=== PATIENT | male | born 1960 | race Two or more races ===

== ENCOUNTER 2024-09-08 13:19 | Inpatient (IN) | payer MEDICAID, SELFPAY ==
[2024-09-08] VITALS (111 sets, daily range): BP systolic 71–268; BP diastolic 40–131; PULSE 68–188; RESP 0–52; TEMP 36.7–40.6; O2SAT 82–99; BMI 27.3; BMI 27.8
[2024-09-08] MEDS: MORPHINE SULF INJ 10 MG/ML VIAL 4 MG IVP (13:32)
[2024-09-08] MEDS: FUROSEMIDE INJ 10 MG/ML 4ML VIAL 80 MG IVP (13:34)
--- NOTE | 2024-09-08 13:39 | XR_ITS ---
Examination: AP chest single view Technique one AP portable upright chest single view Exam date and time: September 08, 2024 1546 hrs. Indications: Shortness of breath chest pain today. Findings: Mild to moderate CHF Mild enlargement cardiac contour Prominent vascular congestion with perihilar edema Superimposed pneumonia in the left lung Impression: [id number] CHF Superimposed pneumonia left lung
[2024-09-08] MEDS: KETAMINE 50 MG/ML VIAL 10 ML 20 MG IVP (13:40)
[2024-09-08] MEDS: MethylPREDNISolone SOD SUCC 62.5 MG/ML 2ML VIAL 250 MG IVP (13:43)
--- NOTE | 2024-09-08 13:43 | PD.EDCHEST ---
ED Chest Pain RME/HPI General Chief Complaint: Chest Pain Stated Complaint: CHEST PAIN Time Seen by Provider: 09/08/24 13:46 Arrival date/time: 09/08/24 13:19 RME / HPI RME / HPI narrative: 64 year old male with history of hypertension, anemia, and heart disease presents to the ED BIBA from home for evaluation of chest pain and shortness of breath beginning today. Per medics, patient reported the chest pain is located most to the center of his chest. Accompanied by feeling short of breath. No nausea, vomiting, or abdominal pain. Medics report on scene patient was saturating 82% on room air and appeared to be in respiratory distress. Was placed on 15L Oxy Mask with improvement to 92%. Patient given 162mg Aspirin, 0.4mg SL Nitro, and 1 Nitro paste on chest prior to arrival. While in the ED patient is in respiratory distress and unable to provide any additional history. Related Data Allergies Allergy/AdvReac Type Severity Reaction Status Date / Time No Known Allergies Allergy Verified 09/08/24 14:32 Review of Systems Review of Systems Narrative Review of Systems: GEN: No fever, no chills EYES: No discharge, no pain HEENT: No ear pain, no congestion, no sore throat PULM: +shortness of breath, no cough CV: +chest pain, no palpitations GI: No nausea, no vomiting, no diarrhea, no pain, no constipation : No frequency, no urgency and no dysuria MUSC/SKEL No joint pain, no back pain SKIN: No rash NEURO: No weakness, no headache Past Medical History Social History SMOKING STATUS: Light (< 1 pack/day) ED Exam Narrative Physical exam: GENERAL APPEARANCE: Well hydrated, well nourished, in respiratory distress, tachypneic. VITALS: All vitals were reviewed, patient is hypertensive 229/117, the pulse ox is 97% on bipap which is normal according to my interpretation. HEENT: Normocephalic, atramatic, EOMI, EACs are patent. There is no bulge or retraction. Throat without erythema or exudate. Moist oromucosa. No jaundice NECK: Supple, positive JVD, no bruits. CARDIOVASCULAR: Tachycardic with occasional PVC's without S3-S4 or murmur. No rubs or gallops. LUNGS/CHEST: Tachypneic, rhonchi and wheezing bilaterally. No rales. ABDOMEN: Soft, nontender, with normal bowel sounds. No pulsatile masses. No rebound, rigidity, or guarding. No incarcerated hernia. EXTREMITIES: No edema, clubbing, or cyanosis. Intact CSM SKIN: Warm, diphoretic, without rashes. MUSCULOSKELETAL: Normal inspection. No gross deformity, full ROM all extremities NEURO: Awake, alert. Cranial nerves II through XII grossly intact. There are no other motor or sensory deficits noted. PSYCHIATRIC: Normal mood and affect. No psychosis Course Quality Measures none Orders Category Date Time Status Admit to Inpatient Status Routine Admission 09/08/24 15:39 Active Patient Condition Routine Admission 09/08/24 15:39 Ordered Bedside COVID-19 Antigen Test NOW Care 09/08/24 13:47 Active Bedside Influenza A&B Antigen Test NOW Care 09/08/24 13:49 Completed Cooling Measures NEEDED Care 09/08/24 14:48 Active EKG (ED ONLY) *Do not use* NOW Care 09/08/24 13:39 Completed Emergency Titration Protocol Stat Care 09/08/24 15:37 Ordered Emergency Titration Protocol Stat Care 09/08/24 15:39 Ordered Borges [Urinary Catheter] QS Care 09/08/24 14:10 Active Intubation NOW Care 09/08/24 14:20 Completed Saline [Insert IV] NOW Care 09/08/24 13:47 Active CA echo doppler complete Stat Exams 09/08/24 15:41 Ordered CXRP [XR chest 1V portable] Stat Exams 09/08/24 13:39 Completed EKG (ED Only) Stat Exams 09/08/24 13:39 Ordered XR chest 1V post procedure Stat Exams 09/08/24 14:08 Completed ABG [Arterial Blood Gas] Stat Lab 09/08/24 13:50 Completed ABG [Arterial Blood Gas] Stat Lab 09/08/24 15:02 Completed ABG [Arterial Blood Gas] Stat Lab 09/08/24 16:37 Completed BNP [B-Type Natriuretic Peptide] Stat Lab 09/08/24 14:29 Completed Blood Culture (Lab) Stat Lab 09/08/24 14:29 Received CBC [CBC] Stat Lab 09/08/24 14:29 Completed CMP [Comprehensive Metabolic Panel] Stat Lab 09/08/24 14:29 Completed Lactate (Lactic Acid) Q4H Lab 09/08/24 17:30 Ordered Lactate (Lactic Acid) Q4H Lab 09/08/24 21:30 Ordered Lactate (Lactic Acid) Q4H Lab 09/09/24 01:30 Ordered Lactic Acid [Lactate (Lactic Acid)] Stat Lab 09/08/24 14:29 Completed Procalcitonin Stat Lab 09/08/24 14:29 Completed Sputum Culture and Gram Stain Stat Lab 09/08/24 14:24 Results Troponin I Stat Lab 09/08/24 14:29 Completed UA, C/S IF [Urinalysis, C/S if Indicated] Stat Lab 09/08/24 15:30 Completed ALBUTEROL RT 3ml [Proventil Rt 3ml] Med 09/08/24 13:27 Discontinued 10 mg INH X1 ONE ALBUTEROL RT 5 ml [Proventil Rt 5 ml] Med 09/08/24 13:24 Discontinued 10 mg INH X1 ONE Acetaminophen Ivpb [Ofirmev Inj] Med 09/08/24 13:50 Discontinued 1,000 mg in 100 ml IV X1 Acetaminophen Tab [Tylenol Tab] Med 09/08/24 15:50 Active 650 mg PO Q6H PRN Albuterol/Ipratr Rt Violeta [Duoneb Rt Violeta] Med 09/08/24 17:30 Active 3 ml INH Q3H Etomidate Inj [Amidate Inj] Med 09/08/24 13:54 Discontinued 20 mg IVP X1 ONE Furosemide Inj [Lasix Inj] Med 09/08/24 13:27 Discontinued 80 mg IVP X1 ONE Ketamine Inj Med 09/08/24 13:40 Discontinued 20 mg IVP X1 ONE Ketamine Inj Med 09/08/24 13:31 Discontinued 500 mg .ROUTE .STK-MED ONE MethylPREDNISolone.* [SoluMEDROL Inj] Med 09/08/24 13:24 Discontinued 250 mg IVP X1 ONE Morphine Inj Med 09/08/24 13:28 Discontinued 4 mg IVP X1 ONE Oseltamivir [Tamiflu] Med 09/08/24 21:00 Active 30 mg PO BID Oseltamivir [Tamiflu] Med 09/08/24 21:00 Discontinued 30 mg PO BID Oseltamivir [Tamiflu] Med 09/08/24 14:45 Discontinued 75 mg PO X1 ONE Pharmacy Renal Dose Adjustment Med 09/08/24 15:45 Active 1 each XX QDAY PRN Propofol 1,000 mg Ivpb [Diprivan Ivpb] Med 09/08/24 14:10 Discontinued 1,000 mg in 100 ml IV 5 mcg/kg/min Propofol 1,000 mg Ivpb [Diprivan Ivpb] Med 09/08/24 15:39 Active 1,000 mg in 100 ml IV 5 mcg/kg/min Ringers Lactated 1000 ml [Lactated Ringers] 1,000 ml Med 09/08/24 15:44 Active IV 126 mls/hr Ringers Lactated 1000 ml [Lactated Ringers] 1,000 ml Med 09/08/24 15:43 Discontinued IV 999 mls/hr Rocuronium Inj [Zemuron Inj] Med 09/08/24 13:54 Discontinued 80 mg IV X1 ONE cefTRIAXone [Rocephin] 1,000 mg Med 09/09/24 09:00 Active Sodium Chloride 0.9% (P) [Ns 0.9% (P)] 50 ml IV QDAY cefTRIAXone/D5w 2gm [Rocephin/d5w 2gm] Med 09/08/24 13:50 Discontinued 2 gm in 50 ml IV X1 fentaNYL 2,500 MCG/250 ML BAG [Sublimaze Inj 2,500 MCG/ Med 09/08/24 15:06 Discontinued 250 ML BAG] 2,500 mcg in 250 ml IV 25 mcg/hr fentaNYL 2,500 MCG/250 ML BAG [Sublimaze Inj 2,500 MCG/ Med 09/08/24 15:39 Active 250 ML BAG] 2,500 mcg in 250 ml IV 25 mcg/hr Code Status Routine Oth 09/08/24 15:39 Ordered BiPAP / CPAP NOW RT 09/08/24 13:25 Active Sputum Induction PRN RT 09/08/24 14:30 Ordered Ventilator [Volume Ventilator] Stat RT 09/08/24 14:20 Active Vital Signs Vital signs: Vital Signs Temperature 100.9 F H 09/08/24 13:34 Pulse Rate 144 H 09/08/24 13:34 Respiratory Rate 50 H 09/08/24 13:34 Blood Pressure 229/117 H 09/08/24 13:34 Pulse Oximetry (%) 97 09/08/24 13:34 Oxygen Delivery Method BiPAP 09/08/24 13:34 Chest Pain MDM Narrative MDM Narrative:: Mervat Arenas am scribing for and in the presence of Dr. Cruz. History and physical examination as above. The patient was brought into the emergency department by ambulance from home in acute respiratory distress. Upon arrival to the emergency department the patient was gasping for air. Tachypneic. An O2 saturation I was told was 82% on room air. We immediately put him on BiPAP treatment. I put him on some morphine, Solu-Medrol, albuterol continuous, Nitropaste was already given by hogshead hooper at the scene. I then gave him 80 mg of Lasix. The patient was agitated. I gave him 20 mg of ketamine. In spite of BiPAP treatment: Patient appeared to be exhausted and diaphoretic. That necessitate intubation. The patient was intubated by me and resident physician Dr. Bingham under my direction using glide a scope. Preintubation medication including etomidate 20 mg and rocuronium 80 mg IV, the patient was intubated with a size 7-1/2 ET tube. It went in easily without any complication. Positive for bilateral lung sounds. Positive for CO2 hand-held monitor color changes. And negative for stomach air bubble. O2 saturation was then 95%. And he was put on the ventilator. Pending chest x-ray. I was informed by nursing staff that he is temperature was 100.9. And then a temperature climb up to 105. We called for septic alert. Rocephin was given. I avoid IV fluid because I think that he is fluid overloaded already. Tylenol was given by IV. Blood culture, lactic acid and procalcitonin were ordered. COVID-19 is negative. However influenza A is positive. I am giving him Tamiflu through the OG tube. Portable chest x-ray interpreted by me: ET tube is in good position. OG tube is in good position. No pneumohemothorax. Positive for bibasilar infiltrates consistent with pneumonia. Also and cephalization consistent with CHF. 2:50 PM, I spoke to and discussed with Dr. Pierce, field artillery operations specialist on-call. He will assess the patient for admit CBC is unremarkable. CMP showing a sugar of 246. Creatinine of 1.4. Lactic acid is 3.1. Procalcitonin is 0.11. Urine negative. Troponin is 0.198. BNP is 1090. COVID-19 is negative. Influenza A is positive. By 5 PM, his blood pressure is 119/52. Pulse of 87. Respiration of 16 on the ventilator. Temperature 99 degrees. O2 saturation was actually 96% on the ventilator. And the patient is going to ICU. Critical care time is approximately 45 minutes excluding any procedure. The high probability of sudden, clinically significant deterioration in the patient?s condition required the highest level of my preparedness to intervene urgently. The services I provided to this patient were to treat and/or prevent clinically significant deterioration. Services included the following: chart data review, reviewing nursing notes and/or old charts, documentation time, peoplesoft consultant collaboration regarding findings and treatment options, medication orders and management, direct patient care, vital sign assessments and ordering, interpreting and reviewing diagnostic studies and lab tests. Aggregate critical care time includes only time during which I was engaged in work directly related to the patient?s care, as described above, whether at bedside or elsewhere in the Emergency Department. It did not include time spent performing other reported procedures or the services of residents, students, nurses or physician assistants. Patient data External records reviewed:: EMS form Clinical information provided by:: patient and EMS Social determinants that could affect healthcare access:: none Patient has the following chronic illnesses:: Hypertension, anemia, heart disease How is presenting disease/condition affected by chronic disease/condition?: exacerbated by Evaluation data The following diagnostics were reviewed and interpreted by me:: lab results, radiology exam(s) and EKG tracing(s) Lab and/or radiology exams considered but not ordered:: None Interpretation Summary: Ordering Physician: Bishop Cruz MD Date of Service: 09/08/24 Procedure(s): XR chest 1V portable Accession Number(s): [id number] cc: Alan Fonseca MD; Bishop Cruz MD~ Examination: AP chest single view Technique one AP portable upright chest single view Exam date and time: September 08, 2024 1546 hrs. Indications: Shortness of breath chest pain today. Findings: Mild to moderate CHF Mild enlargement cardiac contour Prominent vascular congestion with perihilar edema Superimposed pneumonia in the left lung Impression: [id number] CHF Superimposed pneumonia left lung Dictated By: Alan Fonseca MD Signed By: <Electronically signed by Alan Fonseca MD in OV> 09/08/24 1416 Medications / Prescriptions Medications or Prescriptions considered but not ordered:: None Medication administrations:: Medication Administration History Acetaminophen (Acetaminophen 325 Mg Tablet) 650 mg PO Q6H PRN PRN Reason: fever Stop: 10/08/24 15:49 Albuterol/Ipratropium (Albuterol/Ipratropium (Duoneb) Rt Violeta 3 Ml Nebu) 3 ml INH Q3H ROMÁN Stop: 10/08/24 17:29 Dextrose (Dextrose 50%-Water Inj 50 Ml Syringe) 25 ml IV Q15MIN PRN PRN Reason: BG 50-70 responsive npo pt Stop: 10/08/24 16:28 Dextrose (Dextrose 50%-Water Inj 50 Ml Syringe) 50 ml IV Q15MIN PRN PRN Reason: BG <50 OR BG <70 & pt unresponsive Stop: 10/08/24 16:28 Glucagon (Glucagon Inj 1 Mg Vial) 1 mg IM Q15MIN PRN PRN Reason: BG <70, and no IV access Heparin Sodium (Porcine) (Heparin Sod Inj 5000 Unit/Ml Vial) 5,000 unit SC BID ROMÁN Stop: 09/22/24 20:59 Propofol (Diprivan Ivpb) 1,000 mg in 100 mls @ 2.517 mls/hr IV .Q24H PRN; Protocol PRN Reason: PER PROTOCOL Stop: 10/08/24 14:09 Last Titration: 09/08/24 17:00 Dose: 20 mcg/kg/min, 10.07 mls/hr Documented By: Titration: 09/08/24 16:10 Dose: 15 mcg/kg/min, 7.552 mls/hr Documented By: Titration: 09/08/24 16:05 Dose: 20 mcg/kg/min, 10.07 mls/hr Documented By: Titration: 09/08/24 16:00 Dose: 25 mcg/kg/min, 12.587 mls/hr Documented By: Titration: 09/08/24 15:55 Dose: 30 mcg/kg/min, 15.105 mls/hr Documented By: Titration: 09/08/24 15:50 Dose: 35 mcg/kg/min, 17.622 mls/hr Documented By: Titration: 09/08/24 15:45 Dose: 40 mcg/kg/min, 20.14 mls/hr Documented By: Titration: 09/08/24 15:40 Dose: 45 mcg/kg/min, 22.657 mls/hr Documented By: Admin: 09/08/24 15:35 Dose: 50 mcg/kg/min, 25.175 mls/hr Documented By: SEAN Fentanyl Citrate (Sublimaze Inj 2,500 Mcg/250 Ml Bag) 2,500 mcg in 250 mls @ 2.5 mls/hr IV .Q24H PRN; Protocol PRN Reason: PER PROTOCOL Stop: 09/13/24 15:05 Last Titration: 09/08/24 17:00 Dose: 200 mcg/hr, 20 mls/hr Documented By: Admin: 09/08/24 16:00 Dose: 150 mcg/hr, 15 mls/hr Documented By: SEAN Co-signed By: JEANE Lactated Ringer's (Lactated Ringers) 1,000 mls @ 126 mls/hr IV .Q7H57M ROMÁN Stop: 09/09/24 15:43 Last Admin: 09/08/24 16:05 Dose: 126 mls/hr Documented By: SEAN Ceftriaxone Sodium 1,000 mg/ (Sodium Chloride) 50 mls @ 100 mls/hr IV QDAY ROMÁN Stop: 09/16/24 08:59 Norepinephrine/Dextrose (Levophed In D5w 8mg/250ml) 8 mg in 250 mls @ 7.867 mls/hr IV .Q24H PRN; Protocol PRN Reason: PER PROTOCOL Stop: 10/08/24 16:39 Insulin Human Lispro (Insulin Lispro (Admelog) 1 Unit/0.01 Ml Unit) 0 unit SC Q6HR ROMÁN; Protocol Stop: 10/08/24 17:59 Oseltamivir Phosphate (Oseltamivir 6 Mg/Ml) 30 mg PO BID ROMÁN Stop: 09/15/24 20:59 Pantoprazole Sodium (Pantoprazole Inj 40 Mg Vial) 40 mg IV QDAY ROMÁN Stop: 10/08/24 16:14 Pharmacy Consult (Pharmacy Renal Dose Adjustment 1 Ea) 1 each XX QDAY PRN PRN Reason: PROTOCOL Stop: 10/08/24 15:44 Discontinued Medications Albuterol (Albuterol Rt 25 Mg/5 Ml Nebu) 10 mg INH X1 ONE Stop: 09/08/24 13:25 Albuterol (Albuterol Rt 2.5 Mg/3 Ml Nebu) 10 mg INH X1 ONE Stop: 09/08/24 13:28 Last Admin: 09/08/24 13:51 Dose: 10 mg Documented By: LANNY Etomidate (Etomidate Inj 2 Mg/Ml Vial 10 Ml) 20 mg IVP X1 ONE Stop: 09/08/24 13:55 Last Admin: 09/08/24 14:00 Dose: 20 mg Documented By: SEAN Furosemide (Furosemide Inj 10 Mg/Ml 4ml Vial) 80 mg IVP X1 ONE Stop: 09/08/24 13:28 Last Admin: 09/08/24 13:34 Dose: 80 mg Documented By: SEAN Acetaminophen (Ofirmev Inj) 1,000 mg in 100 mls @ 250 mls/hr IV X1 ONE Stop: 09/08/24 14:13 Last Infusion: 09/08/24 15:17 Dose: Infused Documented By: Admin: 09/08/24 14:42 Dose: 250 mls/hr Documented By: SEAN Ceftriaxone Sodium/Dextrose (Rocephin/D5w 2gm) 2 gm in 50 mls @ 100 mls/hr IV X1 ONE Stop: 09/08/24 14:19 Last Infusion: 09/08/24 15:18 Dose: Infused Documented By: Admin: 09/08/24 14:42 Dose: 100 mls/hr Documented By: SEAN Propofol (Diprivan Ivpb) 1,000 mg in 100 mls @ 2.517 mls/hr IV .Q24H PRN; Protocol PRN Reason: PER PROTOCOL Stop: 10/08/24 14:09 Last Titration: 09/08/24 15:35 Dose: Infused Documented By: Titration: 09/08/24 14:45 Dose: 50 mcg/kg/min, 25.175 mls/hr Documented By: Admin: 09/08/24 14:40 Dose: 5 mcg/kg/min, 2.517 mls/hr Documented By: SEAN Co-signed By: DO Fentanyl Citrate (Sublimaze Inj 2,500 Mcg/250 Ml Bag) 2,500 mcg in 250 mls @ 2.5 mls/hr IV .Q24H PRN; Protocol PRN Reason: PER PROTOCOL Stop: 09/13/24 15:05 Last Titration: 09/08/24 16:00 Dose: Infused Documented By: Titration: 09/08/24 15:30 Dose: 150 mcg/hr, 15 mls/hr Documented By: Admin: 09/08/24 15:25 Dose: 100 mcg/hr, 10 mls/hr Documented By: SEAN Co-signed By: FAITH Lactated Ringer's (Lactated Ringers) 1,000 mls @ 999 mls/hr IV .Q1H1M ONE Stop: 09/08/24 16:43 Last Infusion: 09/08/24 16:00 Dose: Infused Documented By: Admin: 09/08/24 15:43 Dose: 999 mls/hr Documented By: SEAN Ketamine HCl (Ketamine 50 Mg/Ml Vial 10 Ml) Confirm Administered Dose 500 mg .ROUTE .STK-MED ONE Stop: 09/08/24 13:32 Last Admin: 09/08/24 13:46 Dose: Not Given Documented By: SEAN Non-Admin Reason: Duplicate Medication on eMAR Ketamine HCl (Ketamine 50 Mg/Ml Vial 10 Ml) 20 mg IVP X1 ONE Stop: 09/08/24 13:41 Last Admin: 09/08/24 13:40 Dose: 20 mg Documented By: SEAN Methylprednisolone Sodium Succinate (Methylprednisolone Sod Succ 62.5 Mg/Ml 2ml Vial) 250 mg IVP X1 ONE Stop: 09/08/24 13:25 Last Admin: 09/08/24 13:43 Dose: 250 mg Documented By: SEAN Morphine Sulfate (Morphine Sulf Inj 10 Mg/Ml Vial) 4 mg IVP X1 ONE Stop: 09/08/24 13:29 Last Admin: 09/08/24 13:32 Dose: 4 mg Documented By: SEAN Oseltamivir Phosphate (Oseltamivir 6 Mg/Ml) [address] [facility]; Protocol Stop: 09/15/24 20:59 Oseltamivir Phosphate (Oseltamivir 6 Mg/Ml) 75 mg PO X1 ONE Stop: 09/08/24 14:46 Rocuronium Panora (Rocuronium Inj 10 Mg/Ml Vial 10 Ml) 80 mg IV X1 ONE Stop: 09/08/24 13:55 Last Admin: 09/08/24 14:03 Dose: 80 mg Documented By: SEAN Co-signed By: JEANE See above Consultations Consultation(s) initiated? (list below): Yes Consultation #1 (Physician, Specialty, Details): I spoke with crimping machine operator Dr. Nguyen as noted above. Time: 14:42 Diagnosis Most likely diagnosis given after review of the tests above:: Acute respiratory failure Sepsis Influenza A Congestive Heart Failure Admission Indicated Admission indicated?: indicated Admission Request Was there a request for admission?: Yes Admission Attestation Admission request attestation: Discussed case with [] from Hospitalist service regarding admission. Discussed patients ED course, exam findings, labs, and radiology results. The Hospitalist [agrees,declines] to accept the patient for admission. Disposition Plan Disposition Plan: Admit Critical Care Time Critical Care Time Critical Care Time: Yes Total Critical Care Time (min.): 45 Attestation: The high probability of sudden, clinically significant deterioration in the patient's condition required the highest level of my preparedness to intervene urgently. The services I provided to this patient were to treat and/or prevent clinically significant deterioration. Services included the following: chart data review, reviewing nursing notes and/or old charts, documentation time, peoplesoft consultant collaboration regarding findings and treatment options, medication orders and management, direct patient care, vital sign assessments and ordering, interpreting and reviewing diagnostic studies and lab tests. Aggregate critical care time includes only time during which I was engaged in work directly related to the patient's care, as described above, whether at bedside or elsewhere in the Emergency Department. It did not include time spent performing other reported procedures or the services of residents, students, nurses or physician assistants. Discharge Plan Plan Patient Disposition: Admit Acute Care w/in Hospital Disposition Comment: Stable for admit Problem List Clinical Impression: Acute respiratory failure, Sepsis, Influenza A, Congestive heart failure
[2024-09-08] MEDS: ALBUTEROL RT 2.5 MG/3 ML NEBU 10 MG INH (13:51)
[2024-09-08 13:54] LABS: Base Excess -5 (-3-3); HCO3 23 mEq/L (20-26); Inspired Oxygen, FIO2 100 %; O2 Saturation 100 % (91-98); PCO2 52 mmHg (32.0-48.0); PO2 144 mmHg (83-108); pH, Arterial 7.26 (7.35-7.45)
[2024-09-08 13:55] LABS: Allen Test Performed/OK; Puncture Site Right Radial
[2024-09-08] MEDS: ETOMIDATE INJ 2 MG/ML VIAL 10 ML 20 MG IVP (14:00)
[2024-09-08] MEDS: ROCURONIUM INJ 10 MG/ML VIAL 10 ML 80 MG IV (14:03)
--- NOTE | 2024-09-08 14:08 | XR_ITS ---
Examination: AP chest single view Technique one AP portable semiupright chest single view Exam date and time: September 08, 2024 1433 hrs. Comparison September 08, 2024 1346 hrs. Indications: Hypoxic respiratory failure. Findings: Prominent CHF Enlarged cardiac contour with vascular congestion and perihilar edema Endotracheal tube tip 5.9 cm above mini Orogastric tube is in the stomach, the tip is below the level of the film Impression: Prominent CHF
--- NOTE | 2024-09-08 14:11 | PD.EDADDENDU ---
MD Attestation MD Attestation Procedures -ED Intubation Time out performed: Yes sedative: Etomidate Mg Given: 20 paralytic: Rocuronium Mg Given: 80 Laryngoscope: fiber optic video scope Assist Device Used: other (guide stylet) ET Tube Size: 7.5 ET Tube Uncuffed: No Tube Secured Depth (cm): 22 Tube Secured Location: teeth Tube Placement Confirmation: visualized tube passing through cords, equal breath sounds bilaterally, no breath sounds over epigastrium and confirmation by capnometry Patient Tolerated Procedure: well and no complications Intubation Complications: none Additional Comments: Surgical cap, mask, and gloves were worn throughout the procedure. The patient was on a cardiac monitor technician including continuous pulse oximetry. The patient was taken off BiPAP and placed in the supine position. He was bagged and preoxygenated to 95%. Rapid Sequence Intubation was conducted. The patient received 20 mg of etomidate for induction and 80 mg of rocuronium for adequate paralysis. Using a fiber optic video laryngoscope and a size 7.5 endotracheal tube with stylet, the patient was intubated on the first attempt. The stylet was removed and cuff balloon was inflated. Appropriate endotracheal tube position was confirmed by direct visualization of vocal cord passage, fogging of the tube, CO2 colormetric indicator and symmetric breath sounds. The tube was secured at 22 cm at the teeth. Post intubation chest x-ray is pending at this time. Procedure completed under the supervision of attending ED physician Dr. Cruz. Argenis Bingham PGY-2 Internal Medicine
[2024-09-08] MEDS: PROPOFOL 1,000 MG IVPB 1,000 MG/100 ML VIAL 2.517 MG IV (14:40)
[2024-09-08] MEDS: ACETAMINOPHEN IVPB 1,000 MG/100 ML VIAL 250 MG IV (14:42)
[2024-09-08] MEDS: cefTRIAXone/D5w 2gm 2 GM/50 ML BAG IV (14:42)
[2024-09-08 14:44] LABS: Lactate (Lactic Acid) 3.1 mMol/L (0.4-2.0)
[2024-09-08 14:45] LABS: Basophils # (Auto) 0.1 Thou/mm3 (0.0-0.2); Basophils % (Auto) 1 % (0-2.5); Eosinophils # (Auto) 0.1 Thou/mm3 (0.0-0.5); Eosinophils % (Auto) 1 % (0-10); Hematocrit 42.9 % (41.0-53.0); Hemoglobin 13.8 g/dL (13.5-16.0); Immature Granulocytes % (Auto) 1 % (0-0); Immature Granulocytes Auto 0.05 Thou/mm3 (0.00-0.00); Lymphocytes # (Auto) 3.3 Thou/mm3 (1.0-4.8); Lymphocytes % (Auto) 33 % (10-50); Mean Corpuscular HGB Conc 32.2 g/dl (31.0-37.0); Mean Corpuscular Hemoglobin 27.4 pg (25.0-35.0); Mean Corpuscular Volume 85 fL (80-100); Monocytes # (Auto) 0.5 Thou/mm3 (0.0-0.8); Monocytes % (Auto) 5 % (0-12); Neutrophils # (Auto) 5.9 Thou/mm3 (1.8-7.7); Neutrophils % (Auto) 59 % (37-80); Nucleated Red Blood Cell % 0 /100 WBC (0); Platelet Count 216 Thou/mm3 (140-440); RDW Standard Deviation 43.4 fL (35.1-43.9); Red Blood Count 5.04 Miln/mm3 (4.50-5.90)
[2024-09-08 15:10] LABS: B-Type Natriuretic Peptide 1090 pg/mL (0-100)
[2024-09-08 15:16] LABS: Base Excess -5 (-3-3); HCO3 23 mEq/L (20-26); Inspired Oxygen, FIO2 100 %; O2 Saturation 98 % (91-98); PCO2 58 mmHg (32.0-48.0); PO2 106 mmHg (83-108); pH, Arterial 7.22 (7.35-7.45)
[2024-09-08] MEDS: fentaNYL 2,500 MCG/250 ML BAG 2,500 MCG/250 ML BAG 10 MCG IV (15:25)
[2024-09-08 15:27] LABS: Allen Test Performed/OK; Puncture Site Left Radial
[2024-09-08 15:31] LABS: Alanine Aminotransferase 30 U/L (10-49); Albumin, Serum 3.9 gm/dL (3.4-4.8); Albumin/Globulin Ratio 1.4 (1.2-2.2); Alkaline Phosphatase 128 U/L (46-116); Anion Gap 11 (7-16); Aspartate Amino Transferase 34 U/L (0-34); BUN/Creatinine Ratio 9 Ratio (12-20); Bilirubin,Total 0.8 mg/dL (0.3-1.2); Blood Urea Nitrogen 13 mg/dL (9-23); Calcium 8.7 mg/dL (8.3-10.6); Calcium (Corrected) 8.8 mg/dL (8.5-10.1); Carbon Dioxide 21.4 mMol/L (20.0-31.0); Chloride 109 mMol/L (98-107); Creatinine (Component) 1.4 mg/dL (0.6-1.3); Estimated Creatinine Clearance 51.9 mL/min (>60); Globulin 2.8 gm/dL (2.3-3.5); Glucose 246 mg/dL (74-106); Osmolality,Calculated 289 (275-295); Potassium 3.9 mMol/L (3.4-5.1); Procalcitonin 0.11 ng/ml (0.0-0.49); Sodium 141 mMol/L (136-145); Total Protein 6.7 gm/dL (5.7-8.2); eGFR 55 See Note
[2024-09-08 15:33] LABS: Troponin I 0.198 ng/mL (0.0-0.045)
[2024-09-08] MEDS: PROPOFOL 1,000 MG IVPB 1,000 MG/100 ML VIAL 25.175 MG IV (15:35)
[2024-09-08 15:41] LABS: Collection Type, Urine Catheter
[2024-09-08] MEDS: RINGERS LACTATED 1000 ML 1,000 ML 999 ML IV (15:43)
[2024-09-08 15:48] LABS: Bacteria,Urine Rare; Bilirubin,Urine Negative (Negative); Blood,Urine Trace (Negative); Clarity,Urine Clear (Clear/Hazy); Color,Urine Lt-Yellow (Lt Yel-Yel); Culture Indicated,Urine Not Indicated; Glucose, Urine Negative (Negative); Hyaline Casts,Urine < 1 /hpf (0-1); Ketones,Urine Negative (Negative); Leukocyte Esterase,Urine Negative (Negative); Nitrite,Urine Negative (Negative); PH,Urine 6.5 (5.0-7.0); Protein,Urine 1+ (Neg - Trace); RBC,Urine 2 /hpf (0-3); Specific Gravity,Urine 1.013 (1.001-1.035); Squamous Epithelial Cell,Urine 1 /hpf (0-5); Urobilinogen,Urine Negative mg/dL (0.0-1.0); WBC,Urine 1 /hpf (0-5)
[2024-09-08] MEDS: fentaNYL 2,500 MCG/250 ML BAG 2,500 MCG/250 ML BAG 15 MCG IV (16:00)
[2024-09-08] MEDS: RINGERS LACTATED 1000 ML 1,000 ML 126 ML IV (16:05)
[2024-09-08 16:42] LABS: Base Excess -3 (-3-3); HCO3 25 mEq/L (20-26); Inspired Oxygen, FIO2 85 %; O2 Saturation 98 % (91-98); PCO2 57 mmHg (32.0-48.0); PO2 99 mmHg (83-108); pH, Arterial 7.25 (7.35-7.45)
[2024-09-08 16:44] LABS: Allen Test Not Performed; Puncture Site Right Radial
--- NOTE | 2024-09-08 17:04 | ESHP_ITS ---
Documentation for date of: 09/08/24 [facility] History of Present Illness History of present illness: Patrice Aguilar is a 64-year-old male with a past medical history of hypertension, anemia, and heart disease who was BIBA for chest pain and shortness of breath beginning. Upon evaluation, patient was already intubated and sedated after failing BiPAP and so history was obtained from chart review and patient's daughter, Gary. For approximately 6 months, daughter had noticed patient becoming more short of breath and an inability to sleep comfortably even with four pillows. Symptoms progressively worsened within the last three days with an associated non-productive cough. Then this morning he endorsed substernal chest pain and acutely worsening shortness of breath and EMS was called. Per medics, patient reported substernal chest pain accompanied by feeling short of breath with no nausea, vomiting, or abdominal pain. On scene, he was saturating 82% on room air and appeared to be in respiratory distress. Was placed on 15 L Oxy Mask with improvement to 92% and given 162 mg Aspirin, 0.4 mg SL Nitro, and 1 Nitro paste on chest prior to arrival. In ED, vitals showed BP 229/117, HR 114, RR 50, and temperature of 100.9 ?F. Noted to be in respiratory distress with RR in 50s and unable to provide any history and was put on BiPAP and given morphine, solu-medrol, continuous albuterol treatment, 80 mg lasix, and 20 mg ketamine. Due to continued respiratory distress on BiPAP decision was made to intubate and afterwards was sedated on propofol and fentanyl. Temperature reached up to 105 ?F so sepsis alert was called and patient was given Rocephin 2 g. Patient also noted to be influenza A positive and CXR showed bilateral basilar infiltrates, left more than right. Vitals stabilized to BP of 119/52, HR 87, RR 16, temperature 99 ?F, saturating 93% on mechanical ventilation. ABG after intubation showed pH 7.26, pCO2 52, pO2 106. ABG after setting change to A/CMV, VT 420, RR 24, PEEP 6, FiO2 85% showed pH 7.25, pCO2 57, pO2 99. Other labs showed WBC wnl, Hgb 13.8, sodium 141, potassium 3.9, creatinine 1.4, BUN wnl, GFR 55, glucose 246, lactate 3.1, BNP 1090, troponin 0.198. EKG obtained in ED without ST elevations or depressions. Admitted to ICU for managemet of acute hypoxic respiratory failure requiring intubation. Review of Systems Review of Systems ROS Unobtainable: due to endotracheal tube Exam Vital Signs Temp Pulse Resp BP Pulse Ox O2 Del Method FiO2 105.0 F H 142 H 13 182/102 H 95 BiPAP 100 09/08/24 15:09 09/08/24 15:09 09/08/24 15:09 09/08/24 15:09 09/08/24 15:09 09/08/24 13:34 09/08/24 14:52 Results: Labs 09/08/24 14:29 09/08/24 14:29 Labs: Short CBC 09/08/24 Range/Units 14:29 WBC 10.0 (3.8-10.6) Thou/mm3 Hgb 13.8 (13.5-16.0) g/dL Hct 42.9 (41.0-53.0) % Plt Count 216 (140-440) Thou/mm3 BMP 09/08/24 14:29 Sodium 141 Potassium 3.9 Chloride 109 H Carbon Dioxide 21.4 BUN 13 Creatinine 1.4 H Glucose 246 H Calcium 8.7 Cardiac Enzymes 09/08/24 Range/Units 14:29 Troponin I 0.198 H* (0.0-0.045) ng/mL Liver Function 09/08/24 Range/Units 14:29 Total Bilirubin 0.8 (0.3-1.2) mg/dL AST 34 (0-34) U/L ALT 30 (10-49) U/L Alkaline Phosphatase 128 H (46-116) U/L Albumin 3.9 (3.4-4.8) gm/dL Urine 09/08/24 Range/Units 15:30 Urine Color Lt-Yellow (Lt Yel-Yel) Urine Clarity Clear (Clear/Hazy) Urine pH 6.5 (5.0-7.0) Ur Specific [place] 1.013 (1.001-1.035) Urine Protein 1+ A (Neg - Trace) Urine Glucose (UA) Negative (Negative) ABG Interpretation ABG results: 09/08/24 09/08/24 09/08/24 13:50 15:02 16:37 ABG pH 7.26 L 7.22 L 7.25 L ABG pCO2 52 H 58 H 57 H ABG pO2 144 H 106 D 99 ABG HCO3 23 23 25 ABG O2 Saturation 100 H 98 98 ABG Base Excess -5 L -5 L -3 Quality Measures Quality Measures none Advance care planning discussed with:: child Medications Home Medications and Allergies Allergies Allergy/AdvReac Type Severity Reaction Status Date / Time No Known Allergies Allergy Verified 09/08/24 14:32 Visit Medications Acetaminophen (Acetaminophen 325 Mg Tablet) 650 mg PO Q6H PRN PRN Reason: fever Stop: 10/08/24 15:49 Albuterol/Ipratropium (Albuterol/Ipratropium (Duoneb) Rt Violeta 3 Ml Nebu) 3 ml INH Q3H ROMÁN Stop: 10/08/24 17:29 Dextrose (Dextrose 50%-Water Inj 50 Ml Syringe) 25 ml IV Q15MIN PRN PRN Reason: BG 50-70 responsive npo pt Stop: 10/08/24 16:28 Dextrose (Dextrose 50%-Water Inj 50 Ml Syringe) 50 ml IV Q15MIN PRN PRN Reason: BG <50 OR BG <70 & pt unresponsive Stop: 10/08/24 16:28 Glucagon (Glucagon Inj 1 Mg Vial) 1 mg IM Q15MIN PRN PRN Reason: BG <70, and no IV access Heparin Sodium (Porcine) (Heparin Sod Inj 5000 Unit/Ml Vial) 5,000 unit SC BID [facility] Stop: 09/22/24 20:59 Propofol (Diprivan Ivpb) 1,000 mg in 100 mls @ 2.517 mls/hr IV .Q24H PRN; Protocol PRN Reason: PER PROTOCOL Stop: 10/08/24 14:09 Last Titration: 09/08/24 16:10 Dose: 15 mcg/kg/min, 7.552 mls/hr Fentanyl Citrate (Sublimaze Inj 2,500 Mcg/250 Ml Bag) 2,500 mcg in 250 mls @ 2.5 mls/hr IV .Q24H PRN; Protocol PRN Reason: PER PROTOCOL Stop: 09/13/24 15:05 Last Admin: 09/08/24 16:00 Dose: 150 mcg/hr, 15 mls/hr Lactated Ringer's (Lactated Ringers) 1,000 mls @ 126 mls/hr IV .Q7H57M [facility] Stop: 09/09/24 15:43 Last Admin: 09/08/24 16:05 Dose: 126 mls/hr Ceftriaxone Sodium 1,000 mg/ (Sodium Chloride) 50 mls @ 100 mls/hr IV QDAY [facility] Stop: 09/16/24 08:59 Norepinephrine/Dextrose (Levophed In D5w 8mg/250ml) 8 mg in 250 mls @ 7.867 mls/hr IV .Q24H PRN; Protocol PRN Reason: PER PROTOCOL Stop: 10/08/24 16:39 Insulin Human Lispro (Insulin Lispro (Admelog) 1 Unit/0.01 Ml Unit) 0 unit SC Q6HR [facility]; Protocol Stop: 10/08/24 17:59 Oseltamivir Phosphate (Oseltamivir 6 Mg/Ml) 30 mg PO BID [facility] Stop: 09/15/24 20:59 Pantoprazole Sodium (Pantoprazole Inj 40 Mg Vial) 40 mg IV QDAY [facility] Stop: 10/08/24 16:14 Pharmacy Consult (Pharmacy Renal Dose Adjustment 1 Ea) 1 each XX QDAY PRN PRN Reason: PROTOCOL Stop: 10/08/24 15:44 Discontinued Medications Albuterol (Albuterol Rt 25 Mg/5 Ml Nebu) 10 mg INH X1 ONE Stop: 09/08/24 13:25 Albuterol (Albuterol Rt 2.5 Mg/3 Ml Nebu) 10 mg INH X1 ONE Stop: 09/08/24 13:28 Last Admin: 09/08/24 13:51 Dose: 10 mg Etomidate (Etomidate Inj 2 Mg/Ml Vial 10 Ml) 20 mg IVP X1 ONE Stop: 09/08/24 13:55 Last Admin: 09/08/24 14:00 Dose: 20 mg Furosemide (Furosemide Inj 10 Mg/Ml 4ml Vial) 80 mg IVP X1 ONE Stop: 09/08/24 13:28 Last Admin: 09/08/24 13:34 Dose: 80 mg Acetaminophen (Ofirmev Inj) 1,000 mg in 100 mls @ 250 mls/hr IV X1 ONE Stop: 09/08/24 14:13 Last Infusion: 09/08/24 15:17 Dose: Infused Ceftriaxone Sodium/Dextrose (Rocephin/D5w 2gm) 2 gm in 50 mls @ 100 mls/hr IV X1 ONE Stop: 09/08/24 14:19 Last Infusion: 09/08/24 15:18 Dose: Infused Propofol (Diprivan Ivpb) 1,000 mg in 100 mls @ 2.517 mls/hr IV .Q24H PRN; Protocol PRN Reason: PER PROTOCOL Stop: 10/08/24 14:09 Last Titration: 09/08/24 15:35 Dose: Infused Fentanyl Citrate (Sublimaze Inj 2,500 Mcg/250 Ml Bag) 2,500 mcg in 250 mls @ 2.5 mls/hr IV .Q24H PRN; Protocol PRN Reason: PER PROTOCOL Stop: 09/13/24 15:05 Last Titration: 09/08/24 16:00 Dose: Infused Lactated Ringer's (Lactated Ringers) 1,000 mls @ 999 mls/hr IV .Q1H1M ONE Stop: 09/08/24 16:43 Last Infusion: 09/08/24 16:00 Dose: Infused Ketamine HCl (Ketamine 50 Mg/Ml Vial 10 Ml) 20 mg IVP X1 ONE Stop: 09/08/24 13:41 Last Admin: 09/08/24 13:40 Dose: 20 mg Methylprednisolone Sodium Succinate (Methylprednisolone Sod Succ 62.5 Mg/Ml 2ml Vial) 250 mg IVP X1 ONE Stop: 09/08/24 13:25 Last Admin: 09/08/24 13:43 Dose: 250 mg Morphine Sulfate (Morphine Sulf Inj 10 Mg/Ml Vial) 4 mg IVP X1 ONE Stop: 09/08/24 13:29 Last Admin: 09/08/24 13:32 Dose: 4 mg Oseltamivir Phosphate (Oseltamivir 6 Mg/Ml) 30 mg PO BID [facility]; Protocol Stop: 09/15/24 20:59 Oseltamivir Phosphate (Oseltamivir 6 Mg/Ml) 75 mg PO X1 ONE Stop: 09/08/24 14:46 Rocuronium Bearden (Rocuronium Inj 10 Mg/Ml Vial 10 Ml) 80 mg IV X1 ONE Stop: 09/08/24 13:55 Last Admin: 09/08/24 14:03 Dose: 80 mg Assessment & Plan Plan Patrice Aguilar is a 64-year-old male with a past medical history of hypertension, anemia, and heart disease who was BIBA for chest pain and shortness of breath beginning and intubated in the ED on 09/08 for acute hypoxic respiratory failure and admitted to the ICU for further management. Neurological #Sedated on propofol and fentanyl Cardiovascular #Acute decompensated CHF exacerbation Per daughter, noted to have 6 months of shortness of breath and orthopnea. No lower extremity edema or crackles heard on exam. Bedside echo in ED showed collapsible IVC. CXR showed mildly enlarged cardiac contour with pulmonary vascular congestion and BNP 1090. Given 80 mg IV Lasix in ED. ? Follow-up cardiac echo ? Strict I's and O's ? Closely monitor fluid status and consider diuretics as needed #Elevated troponins #Demand ischemia Likely in setting of acute decompensated CHF exacerbation, hypertensive urgency/emergency, and AHRF. ? Trend troponin #Hypertensive urgency/emergency with renal dysfunction, improved #History of hypertension Blood pressure improved likely secondary to propofol drip ? Continue to monitor Pulmonary #Acute hypoxic respiratory failure requiring intubation secondary to fluid pneumonia versus acute decompensated CHF exacerbation ? Vent settings: A/CMV, VT 420, RR 24, PEEP 6, FiO2 85% ? Follow-up ABG at 1900 and tomorrow AM (09/09) ? DuoNebs every 3 hours scheduled #Influenza pneumonia #? Concomitant bacterial pneumonia CXR 09/08: Bilateral infiltrates, L > R Given respiratory failure and hemodynamic instability, will cover for concomitant infection with Rocephin. ? Tamiflu renally dosed at 75 mg p.o. twice daily (09/08-) ? Rocephin 1 g daily (09/08-) ? Follow-up sputum culture (09/08) ? Follow-up blood culture (09/08) Gastrointestinal No active/acute disease Renal #ELIZABETH versus CKD No baseline creatinine, thus cannot determine whether patient is in ELIZABETH or CKD. ? Consider obtaining urine albumin, creatinine, total protein #Lactic acidosis, secondary to AHRF versus acute decompensated CHF exacerbation Initial lactic acid 3.1 downtrending to 2.4 after IVF ? Trend lactic acid Heme/onc No active/acute disease Endocine #Hyperglycemia, in setting of steroids In ED received 250 mg of IV Solu-Medrol. ? SSI every 6 hours, can de-escalate as necessary Infectious disease #Sepsis secondary to influenza pneumonia versus superimposed bacterial pneumonia SIRS 3/4: HR 144, RR 50, T 105 ?F + influenza A positive -> sepsis Bedside echo showed collapsible IVC and given sepsis, will give IVF. ? 250 cc bolus LR ? Maintenance 126 cc/hr LR #Influenza pneumonia versus superimposed bacterial pneumonia ? See pulmonary above Hospital management: Disposition: intubated and mechanically ventilated in ICU Sedation: Propofol and fentanyl Pressors: None Fluids: Maintenance LR at 126 cc/h Diet: N.p.o. Lines: Peripheral IV DVT prophylaxis: Heparin SC twice daily GI prophylaxis: Pantoprazole IV daily Borges: Placed 09/08 CODE STATUS: full code ----- Plan discussed with attending physician Dr. Patrick Wilkerson MD PGY-1 Internal Medicine
[2024-09-08 17:42] LABS: Reflex Lactate? Y
[2024-09-08] MEDS: Norepinephrine/D5W 8mg/250ml 8 MG/250 ML BAG 7.867 MG IV (18:13)
[2024-09-08] MEDS: PANTOPRAZOLE INJ 40 MG VIAL IV (18:14)
[2024-09-08] MEDS: ALBUTEROL/IPRATROPIUM (Duoneb) RT SOL 3 ML NEBU INH ×2 (18:15→22:55)
[2024-09-08 18:19] LABS: Lactate (Lactic Acid) 2.4 mMol/L (0.4-2.0)
[2024-09-08 18:42] LABS: Troponin I 0.719 ng/mL (0.0-0.045)
[2024-09-08 19:26] LABS: Base Excess -4 (-3-3); HCO3 23 mEq/L (20-26); Inspired Oxygen, FIO2 60 %; O2 Saturation 97 % (91-98); PCO2 47 mmHg (32.0-48.0); PO2 84 mmHg (83-108)
[2024-09-08 19:28] LABS: Allen Test Performed/OK; Puncture Site Right Radial
[2024-09-08] MEDS: PROPOFOL 1,000 MG IVPB 1,000 MG/100 ML VIAL 17.622 MG IV (20:20)
[2024-09-08 21:20] LABS: Reflex Lactate? Y
[2024-09-08] MEDS: HEPARIN SOD INJ 5000 UNIT/ML VIAL SC (21:40)
[2024-09-08 21:41] LABS: Lactate (Lactic Acid) 3.1 mMol/L (0.4-2.0)
[2024-09-08] MEDS: OSELTAMIVIR 6 MG/ML 30 MG PO (23:57)
[2024-09-09] VITALS (174 sets, daily range): BP systolic 91–159; BP diastolic 47–99; PULSE 61–174; RESP 21–33; TEMP 37–38.4; O2SAT 88–100; BMI 27.8; BMI 27.7
[2024-09-09 00:32] LABS: Reflex Lactate? Y
[2024-09-09] MEDS: RINGERS LACTATED 1000 ML 1,000 ML 126 ML IV (01:20)
[2024-09-09] MEDS: PROPOFOL 1,000 MG IVPB 1,000 MG/100 ML VIAL 17.622 MG IV (01:30)
[2024-09-09] MEDS: fentaNYL 2,500 MCG/250 ML BAG 2,500 MCG/250 ML BAG 25 MCG IV ×2 (01:30→11:00)
[2024-09-09 02:06] LABS: Lactate (Lactic Acid) 4.4 mMol/L (0.4-2.0)
[2024-09-09] MEDS: ALBUTEROL/IPRATROPIUM (Duoneb) RT SOL 3 ML NEBU INH ×6 (02:15→22:10)
[2024-09-09 02:44] LABS: Troponin I 0.924 ng/mL (0.0-0.045)
--- NOTE | 2024-09-09 05:00 | XR_ITS ---
Examination: AP chest single view Technique one AP portable semiupright chest single view Exam date and time: September 09, 2024 0502 hrs. Comparison September 08, 2024 Indications: Hypoxic respiratory failure, extensive pneumonia ARDS discrete, postintubation Findings: Endotracheal tube tip 5.8 cm above mini The orogastric tube is in the stomach Mild enlargement cardiac contour Prominent vascular congestion Extensive bilateral lung opacity with bilateral pleural effusions, moderate to large on the right Impression: Extensive bilateral pneumonia/ARDS Associated heart failure
[2024-09-09 05:04] LABS: Reflex Lactate? Y
[2024-09-09 05:13] LABS: Lactic Acid, 3 HR 4.8 mMol/L (0.4-2.0)
[2024-09-09 05:27] LABS: Basophils % (Auto) 0 % (0-2.5); Eosinophils % (Auto) 0 % (0-10); Hemoglobin 12.6 g/dL (13.5-16.0); Immature Granulocytes % (Auto) 1 % (0-0); Immature Granulocytes Auto 0.07 Thou/mm3 (0.00-0.00); Lymphocytes # (Auto) 0.2 Thou/mm3 (1.0-4.8); Lymphocytes % (Auto) 2 % (10-50); Mean Corpuscular HGB Conc 32.3 g/dl (31.0-37.0); Mean Corpuscular Hemoglobin 27.9 pg (25.0-35.0); Mean Corpuscular Volume 86 fL (80-100); Monocytes # (Auto) 0.2 Thou/mm3 (0.0-0.8); Monocytes % (Auto) 2 % (0-12); Neutrophils # (Auto) 10.4 Thou/mm3 (1.8-7.7); Neutrophils % (Auto) 96 % (37-80); Nucleated Red Blood Cell % 0 /100 WBC (0); Platelet Count 233 Thou/mm3 (140-440); RDW Standard Deviation 43.1 fL (35.1-43.9); Red Blood Count 4.52 Miln/mm3 (4.50-5.90); White Blood Count 10.9 Thou/mm3 (3.8-10.6)
[2024-09-09 05:29] LABS: Allen Test Performed/OK; Base Excess -5 (-3-3); HCO3 23 mEq/L (20-26); Inspired Oxygen, FIO2 21 %; O2 Saturation 95 % (91-98); PCO2 50 mmHg (32.0-48.0); PO2 73 mmHg (83-108); Puncture Site Right Radial; pH, Arterial 7.26 (7.35-7.45)
[2024-09-09 05:43] LABS: Alanine Aminotransferase 25 U/L (10-49); Albumin, Serum 3.6 gm/dL (3.4-4.8); Albumin/Globulin Ratio 1.3 (1.2-2.2); Alkaline Phosphatase 111 U/L (46-116); Anion Gap 13 (7-16); Aspartate Amino Transferase 27 U/L (0-34); BUN/Creatinine Ratio 13 Ratio (12-20); Bilirubin,Total 0.4 mg/dL (0.3-1.2); Blood Urea Nitrogen 21 mg/dL (9-23); Calcium 8.4 mg/dL (8.3-10.6); Calcium (Corrected) 8.7 mg/dL (8.5-10.1); Carbon Dioxide 21.7 mMol/L (20.0-31.0); Chloride 105 mMol/L (98-107); Creatinine (Component) 1.6 mg/dL (0.6-1.3); Estimated Creatinine Clearance 47.7 mL/min (>60); Globulin 2.7 gm/dL (2.3-3.5); Glucose 254 mg/dL (74-106); Osmolality,Calculated 291 (275-295); Potassium 4.4 mMol/L (3.4-5.1); Sodium 140 mMol/L (136-145); Total Protein 6.3 gm/dL (5.7-8.2); eGFR 47 See Note
[2024-09-09] MEDS: INSULIN LISPRO (AdmeLOG) 1 UNIT/0.01 ML UNIT SC ×2 (05:47→12:41)
[2024-09-09] MEDS: PROPOFOL 1,000 MG IVPB 1,000 MG/100 ML VIAL 12.587 MG IV ×2 (08:34→13:28)
[2024-09-09 08:52] LABS: Troponin I 0.728 ng/mL (0.0-0.045)
--- NOTE | 2024-09-09 08:57 | EKG_ITS ---
[facility] Test Date: 2024-09-09 Pat Name: ASHOK GARCIA [facility] Gender[facility] Critical Care Unit Nurse: RTSJC : 1960 Requested By: Russ Garza Order Number: [id number] Reading MD: Russ Garza Measurements Intervals [address] Rate: 80 P: 41 [place]: 136 QRS: 46 QRSD: 91 T: 132 QT: 415 QTc: 479 Interpretive Statements SINUS RHYTHM POSSIBLE LEFT ATRIAL ENLARGEMENT POSSIBLE LEFT VENTRICULAR HYPERTROPHY ST DEVIATION AND MARKED T-WAVE ABNORMALITY, CONSIDER ANTEROLATERAL ISCHEMIA No previous ECG available for comparison /[id number]
[2024-09-09] MEDS: OSELTAMIVIR 6 MG/ML 30 MG PO ×2 (09:15→21:32)
[2024-09-09] MEDS: PANTOPRAZOLE INJ 40 MG VIAL IV (09:20)
[2024-09-09] MEDS: HEPARIN SOD INJ 5000 UNIT/ML VIAL SC ×2 (09:20→21:32)
[2024-09-09] MEDS: cefTRIAXone/D5w 2gm 2 GM/50 ML BAG IV (09:21)
[2024-09-09] MEDS: Vancomycin Inj 1,500 MG in SODIUM CHLORIDE 0.9% 500 ML 500 ML 200 MG IV (09:47)
[2024-09-09 09:49] LABS: Glucose Estimated Average 108 mg/dL (80-131); Hemoglobin A1C 5.4 % Hgb (4.8-6.0)
[2024-09-09] MEDS: INSULIN GLARGINE (Lantus) 5 UNIT/0.05 ML (PER 5 UNITS) SC (09:52)
--- NOTE | 2024-09-09 10:15 | XR_ITS ---
Examination: Abdomen sonogram, Limited Date and time of exam: September 09, 2024 1259 hours INDICATIONS: Upper abdominal pain, elevated liver function tests on laboratory examination this week Technique: Real-time chino scale transabdominal sonographic images of the upper abdomen obtained. Findings: 16 mm gallstone Gallbladder wall 0.3 cm no edema Common bile duct 0.6 cm no stones Pancreatic head 2.1 cm Liver 17.6 cm fatty infiltration no focal liver lesions Normal hepatopedal portal venous flow Patent IVC IMPRESSION: Cholelithiasis, negative for cholecystitis
[2024-09-09 11:00] LABS: Lipase 27 U/L (12-53)
[2024-09-09] MEDS: MIDAZOLAM INJ 1 MG/ML VIAL 2 ML 2 MG IV ×3 (11:16→17:07)
[2024-09-09 11:48] LABS: Lactate (Lactic Acid) 1.3 mMol/L (0.4-2.0)
[2024-09-09 11:54] LABS: Reflex Lactate? Y
--- NOTE | 2024-09-09 12:04 | XR_ITS ---
Examination: AP chest single view TECHNIQUE: AP portable supine chest single view Exam date and time: September 09, 2024 1232 hours Comparison September 09, 2024 0502 hours INDICATIONS: Post right thoracentesis. FINDINGS: Decrease in right pleural fluid No pneumothorax Extensive bilateral pneumonia Moderate left pleural fluid Heart failure pattern again depicted Orogastric tube in the stomach, the tip is below the level of the film IMPRESSION: Decrease in right pleural fluid, no pneumothorax
--- NOTE | 2024-09-09 12:48 | PC.DIETICIAN ---
Nutrition prescription Vital 1.2 at 20 ml/hr via OG tube by pump. Advance 10 ml every 8 hrs to goal rate of 50 ml/hr x 24 hrs. No water flushes at this time.
[2024-09-09] MEDS: Norepinephrine/D5W 8mg/250ml 8 MG/250 ML BAG 4.72 MG IV (12:51)
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
[2024-09-09 13:30] LABS: Amylase,Pleural Fluid 24 IU/L; Glucose,Pleural Fluid 212 mg/dL; LDH,Pleural Fluid 101 IU/L; Protein Total,Pleural Fluid < 2.0 g/dL
--- NOTE | 2024-09-09 13:38 | ESPR_ITS ---
<Statement entered by Shirley Nguyen MD - 09/09/24 20:32> TOTAL CC TIME: 90 MIN I saw and evaluated the patient. I reviewed the resident?s note and agree with findings and plan as documented in the resident?s note. Upon my evaluation, this patient had a high probability of imminent or life- threatening deterioration due to sepitc shock, acute hypoxic resp failure, ELIZABETH, which required my direct attention, intervention, and personal management. This time is exclusive of time spent on procedures, which are documented separately if performed. Intentionally sedated to maintain MV synchrony w/ LTV protective strategy currently Pplt is at goal s/p right thoracentesis - c/w transudate and given ECHO/ANGEL findings this is now more clearly due to acute cardiomyopathy IVC w/o any significant resp variation/SVI NICOM ordered. Given transudative effusion/CHF/pulm EDEMA - we decided to attempt diuresis source of septic shock multifactorial but now with major concern for IE based off ECHO / ANGEL findings. Abx adjusted appropriately Given moderate/severe AR, pt requires transfer to tertiary center for CV surgery evaluation. AVR likely will be required. Transfer center informed as was patient's family Documentation for date of: 09/09/24 Subjective Subjective Interval history: Patrice Aguilar is a 64-year-old male with a past medical history of hypertension, anemia, and heart disease who was BIBA for chest pain and shortness of breath. Upon evaluation, patient was already intubated and sedated after failing BiPAP and so history was obtained from chart review and patient's daughter, Gary. For approximately 6 months, daughter had noticed patient becoming more short of breath and an inability to sleep comfortably even with four pillows. Symptoms progressively worsened within the last three days with an associated non- productive cough. Then on morning of presentation he endorsed substernal chest pain and acutely worsening shortness of breath and EMS was called. Per medics, on scene patient was saturating 82% on room air and appeared in respiratory distress. He was then placed on 15 L Oxy Mask with improvement to 92% and given 162 mg Aspirin, 0.4 mg SL Nitro, and 1 Nitro paste on chest prior to arrival. In ED, vitals showed BP 229/117, HR 114, and temperature of 100.9 ?F. Noted to be in respiratory distress with RR in 50s and unable to provide any history so was put on BiPAP and given morphine, solu-medrol, continuous albuterol treatment, 80 mg lasix, and 20 mg ketamine. Due to continued respiratory distress on BiPAP decision was made to intubate and then sedated on propofol and fentanyl. Temperature reached up to 105 ?F so sepsis alert was called and he was given Rocephin 2 g. Also noted to be influenza A positive and CXR showed bilateral basilar infiltrates, left more than right. With sedation, vitals stabilized to BP of 119/52, HR 87, RR 16, temperature 99 ?F, saturating 93% on mechanical ventilation. ABG after intubation showed pH 7.26, pCO2 52, pO2 106. ABG after setting change to A/CMV, VT 420, RR 24, PEEP 6, FiO2 85% showed pH 7.25, pCO2 57, pO2 99. Other initial labs showed WBC wnl, Hgb 13.8, sodium 141, potassium 3.9, creatinine 1.4, BUN wnl, GFR 55, glucose 246, lactate 3.1, BNP 1090, troponin 0.198. EKG obtained in ED without ST elevations or depressions. Admitted to ICU for managemet of acute hypoxic respiratory failure requiring intubation. 09/09: Seen and examined at bedside in ICU. No acute overnight events reported. Noted to be hypotensive with BP 70/40 in evening of 09/08 and so levophed was started. Bedside ultrasound showed complex pleural effusions and thus underwent right-sided thoracentesis with removal of 500 cc of yellow/green-colored fluid. Fluid sent for analysis and culture. Prelim echo showed concern for possible aortic valve vegetation and severe aortic insufficiency and EKG obtained showed T wave inversions in leads V1 through V5, thus cardiology consulted. ANGEL obtained confirmed aortic valve vegetation with suspected acute and severe aortic insufficiency given absence of LV dilatation. Transfer process initiated immediately and family updated on patient clinical status and current plans. To further assess/rule out other sources of infection/sepsis, gallbladder ultrasound showed cholelithiasis without cholecystitis and follow-up on CT head and CTA C/A/P. Of note, baseline heart rate in ICU between 85 to 100 bpm, but noted to increase to 150 to 160 bpm more frequently and for longer period of time. EKG showed sinus tachycardia versus SVT. Exam Vital Signs Temp Pulse Resp BP Pulse Ox O2 Del Method FiO2 98.9 F 90 29 H 111/58 L 93 L Mechanical Ventilation 40 09/09/24 12:00 09/09/24 13:00 09/09/24 10:22 09/09/24 13:00 09/09/24 13:00 09/08/24 17:00 09/09/24 12:00 Narrative Exam General: sedated on propofol and fentanyl, mechanically intubated HEENT: NC/AT, mucous membranes moist, bilateral sclera anicteric Cardiovascular: tachycardic, high-pitched diastolic murmur at left sternal border Pulmonary: fine crackles in right lower lobe; left lung clear to auscultation Abdominal: non-tender, non-distended, no rebound/guarding Musculoskeletal: trace bilateral pitting edema Skin: warm and dry, intact, no rashes Objective Labs 09/09/24 04:40 09/09/24 13:25 Labs: Laboratory Results - last 24 hr 09/08/24 09/08/24 09/08/24 13:50 14:29 15:02 WBC 10.0 RBC 5.04 Hgb 13.8 Hct 42.9 MCV 85 MCH 27.4 MCHC 32.2 RDW Std Deviation 43.4 Plt Count 216 Neut % (Auto) 59 Lymph % (Auto) 33 [place] % (Auto) 5 Eos % (Auto) 1 Baso % (Auto) 1 Neut # (Auto) 5.9 Lymph # (Auto) 3.3 [place] # (Auto) 0.5 Eos # (Auto) 0.1 Baso # (Auto) 0.1 Immature Gran # (Auto) 0.05 H Absolute Nucleated RBC 0.00 Immature Gran % 1 H Nucleated RBC % 0 Puncture Site Right Radial Left Radial ABG pH 7.26 L 7.22 L ABG pCO2 52 H 58 H ABG pO2 144 H 106 D ABG HCO3 23 23 ABG O2 Saturation 100 H 98 ABG Base Excess -5 L -5 L FiO2 100 100 Sodium 141 Potassium 3.9 Chloride 109 H Carbon Dioxide 21.4 Anion Gap 11 BUN 13 Creatinine 1.4 H Estim Creat Clear Calc 51.9 L eGFR 55 L BUN/Creatinine Ratio 9 L Glucose [address] Glu mg/dL Hemoglobin A1c Calculated Osmolality 289 Lactic Acid 3.1 H Calcium 8.7 Corrected Calcium 8.8 Total Bilirubin 0.8 AST 34 ALT 30 Alkaline Phosphatase 128 H Troponin I 0.198 H* B-Natriuretic Peptide 1090 H* Total Protein 6.7 Albumin 3.9 Globulin 2.8 Albumin/Globulin Ratio 1.4 Lipase Procalcitonin 0.11 Ur Collection Type Urine Color Urine Clarity Urine pH Ur Specific [place] Urine Protein Urine Glucose (UA) Urine Ketones Urine Blood Urine Nitrite Urine Bilirubin Urine Urobilinogen (Auto) Ur Leukocyte Esterase Urine RBC Urine WBC Ur Squamous Epith Cells Urine Bacteria Hyaline Casts Ur Culture Indicated? Pleural Total Protein Pleural LDH Pleural Glucose Pleural Amylase 09/08/24 09/08/24 09/08/24 15:30 16:37 18:12 WBC RBC Hgb Hct MCV MCH MCHC RDW Std Deviation Plt Count Neut % (Auto) Lymph % (Auto) [place] % (Auto) Eos % (Auto) Baso % (Auto) Neut # (Auto) Lymph # (Auto) [place] # (Auto) Eos # (Auto) Baso # (Auto) Immature Gran # (Auto) Absolute Nucleated RBC Immature Gran % Nucleated RBC % Puncture Site Right Radial ABG pH 7.25 L ABG pCO2 57 H ABG pO2 99 ABG HCO3 25 ABG O2 Saturation 98 ABG Base Excess -3 FiO2 85 Sodium Potassium Chloride Carbon Dioxide Anion Gap BUN Creatinine Estim Creat Clear Calc eGFR BUN/Creatinine Ratio Glucose Estimated Ave Glu mg/dL Hemoglobin A1c Calculated Osmolality Lactic Acid 2.4 H Calcium Corrected Calcium Total Bilirubin AST ALT Alkaline Phosphatase Troponin I 0.719 H* D B-Natriuretic Peptide Total Protein Albumin Globulin Albumin/Globulin Ratio Lipase Procalcitonin Ur Collection Type Catheter Urine Color Lt-Yellow Urine Clarity Clear Urine pH 6.5 Ur Specific [place] 1.013 Urine Protein 1+ A Urine Glucose (UA) Negative Urine Ketones Negative Urine Blood Trace Urine Nitrite Negative Urine Bilirubin Negative Urine Urobilinogen (Auto) Negative Ur Leukocyte Esterase Negative Urine RBC 2 Urine WBC 1 Ur Squamous Epith Cells 1 Urine Bacteria Rare Hyaline Casts < 1 Ur Culture Indicated? Not Indicated Pleural Total Protein Pleural LDH Pleural Glucose Pleural Amylase 09/08/24 09/08/24 09/09/24 19:18 21:18 01:46 WBC RBC Hgb Hct MCV MCH MCHC RDW Std Deviation Plt Count Neut % (Auto) Lymph % (Auto) [place] % (Auto) Eos % (Auto) Baso % (Auto) Neut # (Auto) Lymph # (Auto) [place] # (Auto) Eos # (Auto) Baso # (Auto) Immature Gran # (Auto) Absolute Nucleated RBC Immature Gran % Nucleated RBC % Puncture Site Right Radial ABG pH 7.30 L ABG pCO2 47 D ABG pO2 84 ABG HCO3 23 ABG O2 Saturation 97 ABG Base Excess -4 L FiO2 60 Sodium Potassium Chloride Carbon Dioxide Anion Gap BUN Creatinine Estim Creat Clear Calc eGFR BUN/Creatinine Ratio Glucose Estimated Ave Glu mg/dL Hemoglobin A1c Calculated Osmolality Lactic Acid 3.1 H 4.4 H* Calcium Corrected Calcium Total Bilirubin AST ALT Alkaline Phosphatase Troponin I 0.924 H* D B-Natriuretic Peptide Total Protein Albumin Globulin Albumin/Globulin Ratio Lipase Procalcitonin Ur Collection Type Urine Color Urine Clarity Urine pH Ur Specific [place] Urine Protein Urine Glucose (UA) Urine Ketones Urine Blood Urine Nitrite Urine Bilirubin Urine Urobilinogen (Auto) Ur Leukocyte Esterase Urine RBC Urine WBC Ur Squamous Epith Cells Urine Bacteria Hyaline Casts Ur Culture Indicated? Pleural Total Protein Pleural LDH Pleural Glucose Pleural Amylase 09/09/24 09/09/24 09/09/24 04:40 05:18 07:20 WBC 10.9 H RBC 4.52 Hgb 12.6 L Hct 39.0 L MCV 86 MCH 27.9 MCHC 32.3 RDW Std Deviation 43.1 Plt Count 233 Neut % (Auto) 96 H Lymph % (Auto) 2 L [place] % (Auto) 2 Eos % (Auto) 0 Baso % (Auto) 0 Neut # (Auto) 10.4 H Lymph # (Auto) 0.2 L [place] # (Auto) 0.2 Eos # (Auto) 0.0 Baso # (Auto) 0.0 Immature Gran # (Auto) 0.07 H Absolute Nucleated RBC 0.00 Immature Gran % 1 H Nucleated RBC % 0 Puncture Site Right Radial ABG pH 7.26 L ABG pCO2 50 H ABG pO2 73 L ABG HCO3 23 ABG O2 Saturation 95 ABG Base Excess -5 L FiO2 21 Sodium 140 Potassium 4.4 D Chloride 105 Carbon Dioxide 21.7 Anion Gap 13 BUN 21 Creatinine 1.6 H Estim Creat Clear Calc 47.7 L eGFR 47 L BUN/Creatinine Ratio 13 Glucose [address] Glu mg/dL 108 Hemoglobin A1c 5.4 Calculated Osmolality 291 Lactic Acid 4.8 H* Calcium 8.4 Corrected Calcium 8.7 Total Bilirubin 0.4 AST 27 ALT 25 Alkaline Phosphatase 111 Troponin I 0.728 H* B-Natriuretic Peptide Total Protein 6.3 Albumin 3.6 Globulin 2.7 Albumin/Globulin Ratio 1.3 Lipase 27 Procalcitonin Ur Collection Type Urine Color Urine Clarity Urine pH Ur Specific [place] Urine Protein Urine Glucose (UA) Urine Ketones Urine Blood Urine Nitrite Urine Bilirubin Urine Urobilinogen (Auto) Ur Leukocyte Esterase Urine RBC Urine WBC Ur Squamous Epith Cells Urine Bacteria Hyaline Casts Ur Culture Indicated? Pleural Total Protein Pleural LDH Pleural Glucose Pleural Amylase 09/09/24 09/09/24 09/09/24 08:42 11:39 12:00 WBC RBC Hgb Hct MCV MCH MCHC RDW Std Deviation Plt Count Neut % (Auto) Lymph % (Auto) [place] % (Auto) Eos % (Auto) Baso % (Auto) Neut # (Auto) Lymph # (Auto) [place] # (Auto) Eos # (Auto) Baso # (Auto) Immature Gran # (Auto) Absolute Nucleated RBC Immature Gran % Nucleated RBC % Puncture Site ABG pH ABG pCO2 ABG pO2 ABG HCO3 ABG O2 Saturation ABG Base Excess FiO2 Sodium Potassium Chloride Carbon Dioxide Anion Gap BUN Creatinine Estim Creat Clear Calc eGFR BUN/Creatinine Ratio Glucose Estimated Ave Glu mg/dL Hemoglobin A1c Calculated Osmolality Lactic Acid 4.0 H 1.3 Calcium Corrected Calcium Total Bilirubin AST ALT Alkaline Phosphatase Troponin I B-Natriuretic Peptide Total Protein Albumin Globulin Albumin/Globulin Ratio Lipase Procalcitonin Ur Collection Type Urine Color Urine Clarity Urine pH Ur Specific [place] Urine Protein Urine Glucose (UA) Urine Ketones Urine Blood Urine Nitrite Urine Bilirubin Urine Urobilinogen (Auto) Ur Leukocyte Esterase Urine RBC Urine WBC Ur Squamous Epith Cells Urine Bacteria Hyaline Casts Ur Culture Indicated? Pleural Total Protein < 2.0 Pleural LDH 101 Pleural Glucose 212 Pleural Amylase 24 ABG Interpretation ABG results: 09/08/24 09/08/24 09/08/24 13:50 15:02 16:37 ABG pH 7.26 L 7.22 L 7.25 L ABG pCO2 52 H 58 H 57 H ABG pO2 144 H 106 D 99 ABG HCO3 23 23 25 ABG O2 Saturation 100 H 98 98 ABG Base Excess -5 L -5 L -3 09/08/24 09/09/24 19:18 05:18 ABG pH 7.30 L 7.26 L ABG pCO2 47 D 50 H ABG pO2 84 73 L ABG HCO3 23 23 ABG O2 Saturation 97 95 ABG Base Excess -4 L -5 L Quality Measures Quality Measures none Advance care planning discussed with:: significant other, child and sibling Assessment & Plan Assessment Current Active Medications: Generic Name Dose Route Start Last Admin Trade Name Freq PRN Reason Stop Dose Admin Acetaminophen 650 mg 09/08/24 15:50 Acetaminophen 325 Mg Tablet PO 10/08/24 15:49 Q6H PRN fever Albuterol/Ipratropium 3 ml 09/08/24 18:30 09/09/24 10:22 Albuterol/Ipratropium (Duoneb) Rt Violeta 3 Ml Nebu INH 10/08/24 18:29 3 ml Q4H ROMÁN Administration Dextrose 25 ml 09/08/24 16:29 Dextrose 50%-Water Inj 50 Ml Syringe IV 10/08/24 16:28 Q15MIN PRN BG 50-70 responsive npo pt Dextrose 50 ml 09/08/24 16:29 Dextrose 50%-Water Inj 50 Ml Syringe IV 10/08/24 16:28 Q15MIN PRN BG <50 OR BG <70 & pt unresponsive Glucagon 1 mg 09/08/24 16:29 Glucagon Inj 1 Mg Vial IM Q15MIN PRN BG <70, and no IV access Heparin Sodium (Porcine) 5,000 unit 09/08/24 21:00 09/09/24 09:20 Heparin Sod Inj 5000 Unit/Ml Vial SC 09/22/24 20:59 5,000 unit BID ROMÁN Administration Propofol 1,000 mg in 100 mls @ 2.517 mls/hr 09/08/24 15:39 09/09/24 13:28 Diprivan Ivpb IV 10/08/24 14:09 25 mcg/kg/min .Q24H PRN 12.587 mls/hr PER PROTOCOL Administration Protocol 5 MCG/KG/MIN Fentanyl Citrate 2,500 mcg in 250 mls @ 2.5 mls/hr 09/08/24 15:39 09/09/24 13:00 Sublimaze Inj 2,500 Mcg/250 Ml Bag IV 09/13/24 15:05 250 mcg/hr .Q24H PRN 25 mls/hr PER PROTOCOL Titration Protocol 25 MCG/HR Lactated Ringer's 1,000 mls @ 126 mls/hr 09/08/24 15:44 09/09/24 09:22 Lactated Ringers IV 10/08/24 15:43 Not Given .Q7H57M ROMÁN Norepinephrine/Dextrose 8 mg in 250 mls @ 7.867 mls/hr 09/08/24 16:40 09/09/24 12:51 Levophed In D5w 8mg/250ml IV 10/08/24 16:39 0.03 mcg/kg/min .Q24H PRN 4.72 mls/hr PER PROTOCOL Administration Protocol 0.05 MCG/KG/MIN Ceftriaxone Sodium/Dextrose 2 gm in 50 mls @ 100 mls/hr 09/09/24 09:15 09/09/24 09:21 Rocephin/D5w 2gm IV 09/16/24 09:14 100 mls/hr QDAY ROMÁN Administration Vancomycin HCl 750 mg/ Sodium 250 mls @ 200 mls/hr 09/10/24 10:00 Chloride IV 09/17/24 09:59 QDAY@1000 [facility] Protocol Insulin Glargine 5 unit 09/09/24 09:15 09/09/24 09:52 Insulin Glargine (Lantus) 5 Unit/0.05 Ml (Per 5 Units) SC 10/09/24 09:14 5 unit QDAY ROMÁN Administration Insulin Human Lispro 0 unit 09/09/24 12:00 09/09/24 12:41 Insulin Lispro (Admelog) 1 Unit/0.01 Ml Unit SC 10/08/24 11:59 2 unit Q6HR ROMÁN Administration Protocol Oseltamivir Phosphate 30 mg 09/08/24 23:59 09/09/24 09:15 Oseltamivir 6 Mg/Ml PO 09/15/24 23:58 30 mg BID ROMÁN Administration Pantoprazole Sodium 40 mg 09/08/24 16:15 09/09/24 09:20 Pantoprazole Inj 40 Mg Vial IV 10/08/24 16:14 40 mg QDAY ROMÁN Administration Pharmacy Consult 1 each 09/08/24 15:45 Pharmacy Renal Dose Adjustment 1 Ea XX 10/08/24 15:44 QDAY PRN PROTOCOL Pharmacy Consult 1 each 09/09/24 09:30 Vancomycin Pharmacy To Dose 1 Each Each IV 10/09/24 09:29 QDAY PRN PROTOCOL Plan Patrice Aguilar is a 64-year-old male with a past medical history of hypertension, anemia, and heart disease who was BIBA for chest pain and shortness of breath beginning and intubated in the ED on 09/08 for acute hypoxic respiratory failure and admitted to the ICU for further management. 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 Currently in midst of transfer process to [facility], [facility], [place]. ? Follow-up transfer process for aortic valve replacement ? Vancomycin 1.5 g daily, renally dosed #Acute decompensated CHF exacerbation Per daughter, noted to have 6 months of shortness of breath and orthopnea. No lower extremity edema or crackles heard on exam. Bedside echo in ED showed collapsible IVC. CXR showed mildly enlarged cardiac contour with pulmonary vascular congestion and BNP 1090. Given 80 mg IV Lasix in ED. ANGEL: Normal LV thickness and systolic function without WMA and EF 55 to 60%. RV normal in size and function with RVSP 50 mmHg. Mild to moderate MR. Vegetation on right coronary cusp of aortic valve with moderate AI. Mild to moderate TR, mild NM. ? Given Lasix 40 mg IV x 2 ? Strict I's and O's ? Closely monitor fluid status #Sinus tachycardia versus SVT Baseline heart rate in ICU 85 to 100 bpm but noted to increase 250 to 160 bpm more frequently and for longer periods of time. Multiple EKG showed regular, narrow complexes with associated P waves and previously noted ST depressions in V1 through V5. QRS complexes also identical when transitioning from normal heart rate to tachycardia. Thus, differential more likely to be sinus tachycardia rather than SVT. #Hypotension, shock (distributive vs cardiogenic) vs sedation Started on Levophed and evening of 09/08 but drip no longer on since early afternoon of 09/09. Bedside ultrasound showed complex pleural fluid in setting of influenza A pneumonia and thoracentesis yielded 500 cc of yellow-green fluid, thus possible distributive shock. ? Levophed PRN #Elevated troponins #Demand ischemia Likely in setting of acute decompensated CHF exacerbation, hypertensive urgency/emergency, and AHRF. #Hypertensive urgency/emergency with renal dysfunction, resolved #History of hypertension Blood pressure improved likely secondary to propofol drip ? Continue to monitor Pulmonary #Acute hypoxic respiratory failure requiring intubation secondary to flu pneumonia versus acute decompensated CHF exacerbation Low tidal volume protocol/lung protective strategy. ABG on 09/09 at 0500: pH 7.26, pCO2 50, pO2 73. ? Vent settings: A/CMV, VT 380, RR 27, PEEP 5, FiO2 40% ? DuoNebs every 3 hours scheduled #Influenza pneumonia #? Concomitant bacterial pneumonia CXR 09/08: Bilateral infiltrates, L > R Given respiratory failure and hemodynamic instability, will cover for concomitant infection with Rocephin. ? Tamiflu renally dosed at 75 mg p.o. twice daily (09/08-) ? Rocephin 2 g daily (09/08-) ? Follow-up sputum culture (09/08) ? Follow-up blood culture (09/08) Gastrointestinal No active/acute disease Renal #ELIZABETH versus CKD No baseline creatinine, thus cannot determine whether patient is in ELIZABETH or CKD. ? Consider obtaining urine albumin, creatinine, total protein #Lactic acidosis, in setting of sepsis Initial lactic acid 3.1 downtrending to 2.4 after IVF ? Trend lactic acid Heme/onc No active/acute disease Endocine #Hyperglycemia, in setting of steroids In ED received 250 mg of IV Solu-Medrol. ? SSI every 6 hours, increased scale Infectious disease #Sepsis, secondary to ? infective endocarditis vs influenza pneumonia SIRS 3/4: HR 144, RR 50, T 105 ?F + aortic valve vegetation and influenza A positive -> sepsis ? See cardiovascular and pulmonary above Hospital management: Disposition: intubated and mechanically ventilated in ICU Sedation: Propofol and fentanyl Pressors: levophed PRN Fluids: none Diet: N.p.o. Lines: Peripheral IV DVT prophylaxis: Heparin SC twice daily GI prophylaxis: Pantoprazole IV daily Borges: Placed 09/08 CODE STATUS: full code ----- Plan discussed with attending physician Dr. Patrick Wilkerson MD PGY-1 Internal Medicine
[2024-09-09 13:44] LABS: Pleural Fluid WBC 316 /cmm
[2024-09-09 13:50] LABS: Pleural Fluid Appearance Clear; Pleural Fluid Color Straw
[2024-09-09 13:51] LABS: Pleural Fluid Mononuclear 95 %; Pleural Fluid Polynuclear 5 %; Pleural Fluid RBC 2000 /cmm
[2024-09-09 13:54] LABS: Lactate (Lactic Acid) 3.8 mMol/L (0.4-2.0)
[2024-09-09 14:21] LABS: Troponin I 0.751 ng/mL (0.0-0.045)
--- NOTE | 2024-09-09 14:21 | EKG_ITS ---
[facility] Test Date: 2024-09-09 Pat Name: ASHOK GARCIA [facility] Gender[facility] Male [employer]: DI : 1960 Requested By: Amaury Wilkerson Order Number: [id number] Reading MD: Amaury Wilkerson Measurements Intervals [place] Rate: 93 P: 64 DC: 144 QRS: 43 QRSD: 88 T: 135 QT: 369 QTc: 461 Interpretive Statements SINUS RHYTHM WITH OCCASIONAL SUPRAVENTRICULAR PREMATURE COMPLEXES POSSIBLE LEFT ATRIAL ENLARGEMENT LEFT VENTRICULAR HYPERTROPHY AND ST-T CHANGE Compared to ECG 09/09/2024 09:26:10 ST (T wave) deviation now present T-wave abnormality no longer present Possible ischemia no longer present /store/S0/[id number]
[2024-09-09] MEDS: FUROSEMIDE INJ 10 MG/ML 4ML VIAL 40 MG IVP ×2 (14:39→18:01)
[2024-09-09 14:59] LABS: Anion Gap 13 (7-16); BUN/Creatinine Ratio 16 Ratio (12-20); Blood Urea Nitrogen 23 mg/dL (9-23); Calcium 8.4 mg/dL (8.3-10.6); Carbon Dioxide 21.1 mMol/L (20.0-31.0); Chloride 106 mMol/L (98-107); Creatinine (Component) 1.4 mg/dL (0.6-1.3); Estimated Creatinine Clearance 54.5 mL/min (>60); Glucose 147 mg/dL (74-106); Magnesium 2.2 mg/dL (1.6-2.6); Osmolality,Calculated 286 (275-295); Potassium 4.3 mMol/L (3.4-5.1); Sodium 140 mMol/L (136-145); eGFR 55 See Note
--- NOTE | 2024-09-09 15:41 | ECHO_ITS ---
Transthoracic Echo Report Ht (in): Wt (lb): Exam Location: Echo Lab Status: Inpatient Locomotive Crane Engineer: LEE Raines^^^^ Indications: Procedure Performed: BP: 120 / 53 HR: 84 Technical Quality: Technically difficult study MEASUREMENTS (Male / Female) Normal Values 2D ECHO LV Diastolic Diameter PLAX 4.7 cm 4.2 - 5.9 / 3.9 - 5.3 cm LV Systolic Diameter PLAX 4.1 cm IVS Diastolic Thickness 1.1 cm 0.6 - 1.0 / 0.6 - 0.9 cm LVPW Diastolic Thickness 1.0 cm 0.6 - 1.0 / 0.6 - 0.9 cm LV Relative Wall Thickness 0.4 LVOT Diameter 1.4 cm Aortic Root Diameter 3.6 cm LA Systolic Diameter LX 3.7 cm 3.0 - 4.0 / 2.7 - 3.8 cm LV Ejection Fraction MOD BP 46.0 % >= 55 % LV Ejection Fraction MOD 4C 39.9 % LV Ejection Fraction 4C AL 42.6 % LV Ejection Fraction MOD 2C 53.4 % LV Ejection Fraction 2C AL 54.8 % DOPPLER AV Peak Velocity 209.7 cm/s AV Peak Gradient 17.6 mmHg AV Mean Gradient 10.0 mmHg AV Velocity Time Integral 36.9 cm AI Peak Velocity 398.0 cm/s AI Peak Gradient 63.4 mmHg AI Pressure Half Time 314.7 ms LVOT Peak Velocity 117.0 cm/s LVOT Peak Gradient 5.5 mmHg LVOT Velocity Time Integral 32.5 cm AV Area Cont Eq vti 1.4 cm? AV Area Cont Eq pk 0.9 cm? MV Peak Velocity 90.5 cm/s MV Peak Gradient 3.3 mmHg MV Mean Velocity 60.8 cm/s MV Mean Gradient 2.0 mmHg MV Area PHT 3.9 cm? MR Peak Velocity 409.0 cm/s MR Peak Gradient 66.9 mmHg Mitral E Point Velocity 68.7 cm/s Mitral A Point Velocity 52.1 cm/s Mitral E to A Ratio 1.3 LV E' Lateral Velocity 10.6 cm/s Mitral E to LV E' Lateral Ratio 6.5 LV E' Septal Velocity 7.0 cm/s Mitral E to LV E' Septal Ratio 9.9 TR Peak Velocity 297.3 cm/s TR Peak Gradient 35.3 mmHg FINDINGS Left Ventricle The left ventricular ejection fraction is borderline decreased, estimated at 50-55%. There is grade II diastolic dysfunction of the left ventricle (pseudonormal filling pattern). Right Ventricle The right ventricular cavity size is normal. Estimated right ventricular systolic pressure is moderately elevated, 60 mmHg. Left Atrium The left atrial cavity size is mildly increased. Right Atrium The right atrial cavity size is mildly increased. Atrial Septum The interatrial septum is normal to color flow Doppler. Aorta The aortic root, ascending aorta, aortic arch and descending thoracic aorta are normal to two-dimensional, color flow and Doppler interrogation. Mitral Valve Mild thickening of the mitral valve leaflets. Moderate mitral regurgitation. Mild mitral annular calcification. Aortic Valve Moderate thickening of the aortic valve leaflets. [id number]-bhytqs aortic valve regurgitation. Findings consistent with vegetation on the aortic valve. Tricuspid Valve There is moderate tricuspid regurgitation. Pulmonic Valve Mild pulmonic valve regurgitation. Vessels Less than 50% respiratory change in dimension of the inferior vena cava abnormal. Pericardium The pericardium is normal to two-dimensional and color flow Doppler interrogation. CONCLUSIONS Indication: SOB, Acute respiratory failure Moderate to severe eccentric AI, questionable mobile echodensity on the right coronary cusp-differential includes vegetation old versus new versus fibroblastoma. Clinically correlate and consider ANGEL for further evaluation. Calcified right aortic cusp. Moderate aortic valve sclerosis without stenosis V-max 2 m/s. LV size and function appear normal. Estimated EF 55 to 60%. Normal RV size and function. Estimated RVSP 50-60 mmHg. Possible moderate PAH. Moderate TR. Mild biatrial dilatation. Mild to moderate MR. Mild MAC with mild thickening of the mitral leaflets. Bill Fournier (Electronically Signed) Final Date: 09 September 2024 18:22
--- NOTE | 2024-09-09 16:17 | ECHO_ITS ---
Transesophageal Echo Report Ht (in): 68 Wt (lb): 183 Exam Location: Echo Lab Status: Inpatient Assistant Signal Maintainer: LEE Raines^^^^ Indications: Procedure Performed: BP: 124 / 60 HR: Technical Quality: Good MEASUREMENTS DOPPLER AV Peak Velocity 172.0 cm/s AV Peak Gradient 11.8 mmHg AV Mean Gradient 8.0 mmHg AV Velocity Time Integral 30.9 cm AI Peak Velocity 395.0 cm/s AI Peak Gradient 62.4 mmHg AI Pressure Half Time 275.0 ms (Male / Female) Normal Values FINDINGS Left Ventricle Normal left ventricular wall thickness, systolic function with no obvious regional wall motion abnormalities. EF measures at 55-60% Right Ventricle The right ventricle is normal in size and systolic function. The estimated right ventricular systolic pressure, 50 mmHg. Left Atrium The left atrium is normal by two-dimensional, color flow and Doppler imaging with no structural abnormalities, no thrombus formation present. Right Atrium The right atrium is normal by two-dimensional imaging, color flow and Doppler imaging with no structural abnormalities, no thrombus formation present. Atrial Appendages The left atrial appendage appears normal with no evidence for thrombus. Atrial Septum The interatrial septum is normal to color flow Doppler and agitated saline imaging. Aorta The aorta is normal by two-dimensional, color flow and Doppler interrogation. Mitral Valve [id number]-kfmfiobf mitral regurgitation. Aortic Valve Findings consistent with vegetation on the right coronary cusp of the aortic valve. Okan-bs-dpzlqrhg aortic valve regurgitation. Tricuspid Valve There is mild to moderate tricuspid valve regurgitation. Pulmonic Valve Mild pulmonic valve regurgitation. Vessels The pulmonary artery appears normal. The inferior vena cava pulmonary and hepatic veins appear normal. Pericardium The pericardium is normal by two-dimensional imaging. There is no significant pericardial effusion. CONCLUSIONS Indication: Moderate to Severe AI - r/o vegatations. Severe eccentric aortic regurgitation/insufficiency. Vena contracte 0.9 - 1 cm. Mobile echodensity noted on the right coronary cusp measuring 1 x 0.2 cm on the ventricular aspect. Differential includes possible vegetation versus fibroelastoma versus degenerative disease. Correlate clinically Tricuspid aortic valve. RCC mildly calcified, lack of coaptation noted between the RCC and the other 2 cusps. Moderate arterial sclerosis without stenosis. V-max of 2 m/s. Normal LV, RV size and function. Estimated LVEF 55 to 60%. No PFO or ASD. Negative bubble study. No LA/VINH thrombus. Moderate MR and moderate TR. Mild biatrial dilatation. No other valvular vegetations on the mitral, tricuspid and pulmonary valve. Bill Fournier (Electronically Signed) Final Date: 09 September 2024 18:50
--- NOTE | 2024-09-09 16:28 | EKG_ITS ---
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
[2024-09-09] MEDS: fentaNYL CIT INJ 50 mCg/ML AMP 2ML IVP (16:39)
[2024-09-09 16:44] LABS: Base Excess -1 (-3-3); HCO3 25 mEq/L (20-26); Inspired Oxygen, FIO2 40 %; O2 Saturation 95 % (91-98); PCO2 50 mmHg (32.0-48.0); PO2 70 mmHg (83-108); pH, Arterial 7.31 (7.35-7.45)
[2024-09-09 16:48] LABS: Allen Test Performed/OK; Puncture Site Right Brachial
[2024-09-09 16:53] LABS: Reflex Lactate? Y
--- NOTE | 2024-09-09 17:02 | XR_ITS ---
Examination: CTA chest, with intravenous contrast. CTA abdomen, with intravenous contrast. CTA pelvis, with intravenous contrast. 2-D sagittal and coronal reconstructions. 3-D reconstructions. Date and time of exam: September 10, 2024 0146 hrs. Indications: Sepsis alert, respiratory failure today CTDI vol (mgy) 33.50 DLP (MGycm) 1435 Technique: Multiple CTA images, 2.0 mm slice thickness, obtained chest, abdomen, pelvis, with the high-resolution 64 slice scanner. 60 cc Isovue-370 is administered intravenously. Sagittal and coronal 2-D reconstructions are obtained. 3-D reconstructions, angiographic images are obtained. 3-D postprocessing, including vascular maximum intensity projections. Low dose protocols were performed. One or more of the following dose reduction techniques were used; automated exposure control, adjustment of the mA and/or KV according to patient size, use of iterative reconstruction technique. Findings: Endotracheal tube tip 3.5 cm above mini Transverse dimension ascending thoracic aorta 3.9 cm No pulmonary artery filling defects Mild enlargement cardiac contour 4 mm pulmonary nodule right upper lobe, 2 mm pulmonary nodule lingular segment Significant bibasilar pneumonia with mild to moderate bilateral pleural effusions No focal liver or splenic lesions Gallstones Gallbladder wall appears thickened Common bile duct 9 mm The orogastric tube in stomach No pancreatic mass No hydronephrosis Aorta normal size Normal appendix No bowel obstruction No diverticulitis Mild free fluid in the pelvis Urinary bladder is contracted with marked wall thickening, urinary Borges catheter Moderate osteopenia Impression: Negative for pulmonary artery emboli Extensive bibasilar pneumonia consider aspiration pneumonia Noncalcified pulmonary nodules as above, with this study as baseline recommend 6 month follow-up CT chest without contrast Cholelithiasis, recommend repeat gallbladder sonography or MRCP to exclude cholecystitis and assess the enlarged common bile duct, 9 mm Marked thickening of urinary bladder, cystitis included in the differential
[2024-09-09] MEDS: METOPROLOL TARTRATE INJ 1 MG/ML AMP 5 ML 2.5 MG IVP ×2 (17:04→21:25)
[2024-09-09] MEDS: BENZOCAINE 20% (Hurricaine) SPRAY 1 DOSE TOP (17:07)
[2024-09-09 17:08] LABS: Phosphorous 4.9 mg/dL (2.4-5.1); Thyroid Stimulating Hormone 0.39 uIU/mL (0.55-4.78)
[2024-09-09] MEDS: fentaNYL CIT INJ 50 mCg/ML AMP 2ML IV ×2 (17:12→17:14)
--- NOTE | 2024-09-09 17:42 | XR_ITS ---
Examination: CT brain head without contrast. 2-D sagittal coronal reconstructions Date and time of exam:September 10, 2024 at 0146 hrs. Indications: Hypoxic respiratory failure today with altered mental status CTDI: vol (mGy):50 2019 DLP: (mGycm):1030 Technique: Multiple CT axial sections of the brain have been obtained, 5 mm slice thickness. Contrast has not been administered. 2-D sagittal, coronal reconstructions have been obtained Low dose protocols were performed. One or more of the following dose reduction techniques were used; automated exposure control, adjustment of the mA and/or KV according to patient size, use of iterative reconstruction technique. Findings: No significant ventricular enlargement. Intra-axial or extra-axial hemorrhage density is not seen. No mass effect or midline shift Basal cisterns are not remarkable. Fourth ventricle is midline. Cranial vault intact. Impression: Negative for acute hemorrhage, mass effect or midline shift Advise clinical correlation follow-up accordingly
--- NOTE | 2024-09-09 17:52 | PC.CM ---
Addendum entered by Shea Abdalla RN 09/09/24 20:05: My faxes to [facility] and to [facility] did not go through. Handed packet to night charge nurse and asked her to initiate transfer to [facility] and [facility]. I let her know I called for a CD and they were going to bring it to ED. Addendum entered by Shea Abdalla RN 09/09/24 18:44: [facility] transfer linn Carlos called me and stated they are going to have to decline patient due to capacity. Addendum entered by Shea Abdalla RN 09/09/24 18:33: I called radiology and I asked that they make me a CD. I spoke to the resident in ICU and she states we can give Dr. Mark Aguilera's number for doctor to doctor phone # [phone]. Original Note: 1750 I received a referral for transfer to cardiovascular/thoracic surg for endocarditis. I sent referral to [facility], [facility] and [facility]. Packet started.
[2024-09-09 17:55] LABS: Lactic Acid, 3 HR 5.5 mMol/L (0.4-2.0)
[2024-09-09] MEDS: DEXTROSE 50%-WATER INJ 50 ML SYRINGE 25 ML IV (18:02)
[2024-09-09] MEDS: PROPOFOL 1,000 MG IVPB 1,000 MG/100 ML VIAL 25.175 MG IV ×2 (19:25→23:06)
[2024-09-09] MEDS: ACETAMINOPHEN 325 MG TABLET 650 MG PO (19:32)
[2024-09-09 20:00] LABS: Troponin I 0.841 ng/mL (0.0-0.045)
[2024-09-09] MEDS: fentaNYL 2,500 MCG/250 ML BAG 2,500 MCG/250 ML BAG 30 MCG IV (20:25)
--- NOTE | 2024-09-09 20:29 | ESOP_ITS ---
<Statement entered by Shirley Nguyen MD - 09/10/24 14:50> I was present for the critical and wells portions of the procedure and was immediately available to provide assistance. Procedures Procedure Date / Time 09/09/24 1100 Thoracentesis Indication(s): symptomatic Pleural Effusion Informed consent obtained from: surrogate Time out done, and the following verified: correct patient, procedure and pat ient position Ultrasound used: Yes Procedure location: rt. post pleural space Amount pleural fluid removed (ml): 500 EBL(ml): 0 Procedure comment: Due to patient being sedated, patient positioned supine with right arm abducted and bedside ultrasound of right lung showed signs of complex pleural fluid. Site was marked and cleaned with chlorhexidine. Donned surgical cap, sterile gown, and sterile gloves that were worn throughout entire procedure. Patient then draped in sterile manner and 1% lidocaine used to anesthetize skin, subcutaneous tissue, and parietal pleura. Larger finder needle introduced to locate pleural fluid and yellow-green colored fluid was aspirated. A scalpel was then used to mariela the skin at the insertion site and thoracentesis needle was threaded through the incision into the pleural space without difficulty. Needle was removed and catheter continued to drain yellow-green colored pleural fluid. Approximately 500 cc was removed and the catheter was then removed and a bandaid was placed over the site. No immediate complications and post-procedure CXR did not show signs of pneumothorax. Estimated blood loss of 0 cc.
[2024-09-09] MEDS: RINGERS LACTATED 1000 ML 1,000 ML 999 ML IV ×2 (21:09→21:32)
--- NOTE | 2024-09-09 22:41 | ESDS_ITS ---
<Statement entered by Shirley Nguyen MD - 09/11/24 13:22> I saw and evaluated the patient. I reviewed the resident?s note and agree with findings and plan as documented in the resident?s note. Planned Discharge Date 09/10/24 DS: Providers Provider Date of admission: 09/08/24 15:58 Primary care physician: Deuce Baker MD Admitting Provider: Shirley Nguyen MD Attending Provider on Admission: Shirley Nguyen MD Consults: 09/09/24 10:12 Consult to Cardiology Urgent Comment: Consulting Provider: Bill Fournier 09/09/24 17:30 Referral - [facility] Stat Service Needed for Transfer: Cardiovascular/Thoracic Surg Addl Comments:: 64-y/o male with no known PMHx (has not seen a doctor in many years) presented with progressive SOB, nonproductive cough, and substernal chest pain x3 days. Orthopnea, paroxysmal nocturnal dyspnea, and SOB for a few months prior to presentation. In ED, in respiratory distress, failed BiPAP and decision made to intubate secondary to severe influenza A pneumonia. BP noted to be 220+/100 and HR 160-180 at time of presentation with fever up to 105 F. Troponin peaked at 0.9 and lactate peaked at 4.8. BNP 1090. Underwent thoracentesis that removed 500 cc green-yellow pleural fluid. Prelim echo read showed concern for aortic valve vegetation as well as acute and severe aortic insufficiency, which were confirmed by transesophaeal echo on 09/09. High suspicion for infective endocarditis in setting of high fever and immediately started transfer process. Facilities to transfer to include [facility], [facility], and [facility]. Attending Provider on DC: Amaury Wilkerson MD Discharging Provider: Amaury Wilkerson MD DS: Diagnosis Problem List Completed Was Problem List Reviewed/Reconciled?: Yes Hospital Course Hospital Course Hospital course: Patrice Aguilar is a 64-year-old male with a past medical history of hypertension, anemia, and heart disease who was BIBA for chest pain and shortness of breath. Upon evaluation, patient was already intubated and sedated after failing BiPAP and so history was obtained from chart review and patient's daughter, Gary. For approximately 6 months, daughter had noticed patient becoming more short of breath and an inability to sleep comfortably even with four pillows. Symptoms progressively worsened within the last three days with an associated non-prod uctive cough. Then on morning of presentation he endorsed substernal chest pain and acutely worsening shortness of breath and EMS was called. Per medics, on scene patient was saturating 82% on room air and appeared in respiratory distress. He was then placed on 15 L Oxy Mask with improvement to 92% and brought to the ED. In ED, vitals showed BP 229/117, HR 114, and temperature of 100.9 ?F. Noted to be in respiratory distress with RR in 50s and unable to provide any history so was put on BiPAP and given morphine, solu-medrol, continuous albuterol treatment, lasix, and ketamine. Due to continued respiratory distress on BiPAP decision was made to intubate and then sedated on propofol and fentanyl. Temperature reached up to 105 ?F so sepsis alert was called and received Rocephin 2 g. Also noted to be influenza A positive and CXR showed bilateral basilar infiltrates, left more than right. With sedation, vitals stabilized to BP of 119/52, HR 87, RR 16, temperature 99 ?F, saturating 93% on mechanical ventilation. Then admitted to ICU for managemet of acute hypoxic respiratory failure requiring intubation. In evening, noted to be hypotensive with BP 70/40 in evening of 09/08 and so levophed was started. Following day, 09/09, bedside ultrasound showed complex pleural effusions and thus underwent right-sided thoracentesis with removal of 500 cc of yellow/green-colored fluid. Fluid sent for analysis and culture. Prelim echo showed concern for possible aortic valve vegetation and severe aortic insufficiency and EKG obtained showed T wave inversions in leads V1 through V5, thus cardiology consulted. ANGEL obtained confirmed aortic valve vegetation with suspected acute and mild-moderate aortic insufficiency given absence of LV dilatation. Transfer process initiated immediately and family updated on patient clinical status and current plans. To further assess/rule out other sources of infection/sepsis, gallbladder ultrasound showed cholelithiasis without cholecystitis and ordered CT head and CTA C/A/P. Of note, baseline heart rate in ICU between 85 to 100 bpm, but noted to increase to 150 to 160 bpm more frequently and for longer period of time. EKG showed sinus tachycardia versus SVT. Will continue to monitor closely with cardiology on board. On 09/10, heart rate noted to remain elevated in 150-160 bpm range. Decided to give adenosine for further assessment and afterwards heart rate dropped down to 70s and EKG obtained showed what was most likely sinus rhythm. Otherwise, in evening, patient accepted and transferred to [facility] for aortic valve replacement due to ANGEL findings on 09/09. Time Spent with Patient Time attestation: Total time spent providing and/or coordinating discharge services: Exam Vital Signs Temp Pulse Resp BP Pulse Ox O2 Del Method FiO2 99.0 F 147 H 30 H 106/57 L 99 Mechanical Ventilation 40 09/09/24 20:30 09/09/24 21:25 09/09/24 18:20 09/09/24 21:25 09/09/24 18:20 09/08/24 17:00 09/09/24 18:20 Narrative Exam General: sedated on propofol and fentanyl, mechanically intubated HEENT: NC/AT, mucous membranes moist, bilateral sclera anicteric Cardiovascular: tachycardic, high-pitched diastolic murmur at left sternal border Pulmonary: fine crackles in right lower lobe; left lung clear to auscultation Abdominal: non-tender, non-distended, no rebound/guarding Musculoskeletal: trace bilateral pitting edema Skin: warm and dry, intact, no rashes Discharge Plan Plan Patient Disposition: Xfer Other Facility Pt Being Transferred to: [facility] Disposition Comment: Stable for admit Prescriptions/Referrals Referrals: Deuce Baker MD [Primary Care Provider] - Patient/Caregiver Discharge Instructions Print Language: Arabic Stand Alone Forms: Marycarmen Award Info., Patient Portal Info Letter Discharge Order Discharge Orders: Discharge (Routine); Ordered 09/10/24 Ordered By: Mark Aguilera Quality Discharge Quality Measures VTE prophylaxis
[2024-09-09 22:51] LABS: LDH (Lactate Dehydrogenase) 312 U/L (120-246)
--- NOTE | 2024-09-09 23:00 | PC.NURSE ---
regarding transfer called [facility] @ 2010 per transfer at capacity/packet sent by transfer RN/images sent called [facility] @ 2054 at capacity/ faxing packet called [facility] @ 2014/ faxed facesheet and echo /sent images Sloan from transfer center called back and stated per their cardiac surgeon he believes pt has a aortic valve abcess and needs university [facility] and are declining called [facility] @ 2127 at capacity/ faxed packet called [facility] @ 2141 faxed facesheet called [facility] @ 2225 faxing packet/images sent attempted to call [facility]COT[facility] Alvarenga @ 2235 no answer
[2024-09-10] VITALS (168 sets, daily range): BP systolic 84–164; BP diastolic 42–81; PULSE 80–160; RESP 0–31; TEMP 37–38.9; O2SAT 93–100; BMI 27.7
[2024-09-10] MEDS: METOPROLOL TARTRATE INJ 1 MG/ML AMP 5 ML 5 MG IVP (02:15)
[2024-09-10] MEDS: ACETAMINOPHEN 325 MG TABLET 650 MG PO (02:22)
--- NOTE | 2024-09-10 02:41 | PRELIM_ITS ---
CT scan of the head without intravenous contrast (axial sections with sagittal and coronal reformats) September 10, 2024 0144 hours Clinical history: Assess baseline Comparison: No prior study is available for comparison. Findings: There is no evidence of intracranial hemorrhage, mass effect or midline shift. There are periventricular white matter hypodensities, compatible with chronic small vessel ischemia. There is mild volume loss. The calvarium is unremarkable. There is mild mucosal thickening in bilateral ethmoid sinuses. The mastoid air cells and the other visualized paranasal sinuses are clear. Impression: 1. No evidence of intracranial hemorrhage, mass effect or midline shift. 2. Periventricular chronic small vessel ischemia and volume loss. 3. Other findings as described above. Suggest clinical correlation and follow up accordingly. Report Electronically Signed By: Vidal Orellana 09/10/2024 2:41:11 AM [EST]
[2024-09-10] MEDS: ALBUTEROL/IPRATROPIUM (Duoneb) RT SOL 3 ML NEBU INH ×4 (02:50→14:26)
[2024-09-10] MEDS: PROPOFOL 1,000 MG IVPB 1,000 MG/100 ML VIAL 25.175 MG IV ×2 (03:22→08:30)
--- NOTE | 2024-09-10 03:28 | PRELIM_ITS ---
CT angiogram of the chest, abdomen and pelvis with intravenous contrast (axial sections with sagittal and coronal reformats) September 10, 2024 at 0146 hours Clinical History: Assess for additional source of sepsis. Comparison: None. Findings: The thoracic aorta demonstrates mild atheromatous calcification without evidence of dissection or aneurysm. The origins of the right brachiocephalic, left common carotid and left subclavian arteries are patent. The abdominal aorta demonstrates mild atheromatous calcification without evidence of dissection or aneurysm. The celiac, superior mesenteric, inferior mesenteric and bilateral renal arteries are patent to the extent visualized. The common iliac, external iliac and internal iliac arteries are patent b ilaterally. There is no filling defect within the pulmonary artery divisions to suggest pulmonary thromboembolism. Prominent mediastinal lymph nodes, likely reactive. There is no pericardial effusion. No pneumothorax. Large bilateral pleural effusions. Bilateral lower lobes consolidations. The liver, spleen, pancreas and adrenals are unremarkable. Small right renal simple cyst. No hydronephrosis. Gallbladder wall thickening. Distended gallbladder. Gallstones. Dilated CBD measuring up to 0.9 cm. No evidence of bowel obstruction. No evidence of appendicitis. There is no significant mesenteric or retroperitoneal adenopathy. The urinary bladder is nondistended, limited evaluation, Borges catheter in place, trace of air within the urinary bladder, prominent urinary bladder wall there is no free fluid, free air or abscess. Degenerative changes of the imaged portions of the spine. No acute fractures. Chronic multilevel disc disease. Endotracheal tube in place. Esophagogastric tube in place. Dilated left atrium and left ventricle. Impression: 1. No evidence of aortic dissection or aneurysm. 2. No evidence of pulmonary thromboembolism. 3. Bilateral lower lobes consolidation and bilateral pleural effusions, consistent with pneumonia. 4. Probable acute cholecystitis and choledocholithiasis, consider further evaluation. 5. Dilated left atrium and left ventricle. Consider correlation with echocardiogram. 6. Possible cystitis. Please, correlate clinically. Report Electronically Signed By: Raza Bowie 09/10/2024 3:28:34 AM [EST]
--- NOTE | 2024-09-10 04:30 | PC.NURSE ---
[facility] stated they are accepting pending insurance authorization, and currently no bed
[2024-09-10] MEDS: fentaNYL 2,500 MCG/250 ML BAG 2,500 MCG/250 ML BAG 30 MCG IV ×2 (04:49→13:35)
[2024-09-10 05:06] LABS: Basophils % (Auto) 0 % (0-2.5); Eosinophils % (Auto) 0 % (0-10); Hematocrit 37.9 % (41.0-53.0); Immature Granulocytes % (Auto) 0 % (0-0); Immature Granulocytes Auto 0.02 Thou/mm3 (0.00-0.00); Lymphocytes # (Auto) 0.6 Thou/mm3 (1.0-4.8); Lymphocytes % (Auto) 7 % (10-50); Mean Corpuscular HGB Conc 31.7 g/dl (31.0-37.0); Mean Corpuscular Hemoglobin 27.7 pg (25.0-35.0); Mean Corpuscular Volume 88 fL (80-100); Monocytes # (Auto) 0.5 Thou/mm3 (0.0-0.8); Monocytes % (Auto) 6 % (0-12); Neutrophils # (Auto) 7.4 Thou/mm3 (1.8-7.7); Neutrophils % (Auto) 87 % (37-80); Nucleated Red Blood Cell % 0 /100 WBC (0); Platelet Count 168 Thou/mm3 (140-440); RDW Standard Deviation 45.3 fL (35.1-43.9); Red Blood Count 4.33 Miln/mm3 (4.50-5.90); White Blood Count 8.6 Thou/mm3 (3.8-10.6)
[2024-09-10 05:26] LABS: Alanine Aminotransferase 20 U/L (10-49); Albumin, Serum 3.4 gm/dL (3.4-4.8); Albumin/Globulin Ratio 1.4 (1.2-2.2); Anion Gap 8 (7-16); Aspartate Amino Transferase 23 U/L (0-34); BUN/Creatinine Ratio 19 Ratio (12-20); Bilirubin,Total 0.7 mg/dL (0.3-1.2); Blood Urea Nitrogen 32 mg/dL (9-23); Calcium (Corrected) 8.5 mg/dL (8.5-10.1); Carbon Dioxide 27.2 mMol/L (20.0-31.0); Chloride 104 mMol/L (98-107); Creatinine (Component) 1.7 mg/dL (0.6-1.3); Estimated Creatinine Clearance 44.9 mL/min (>60); Globulin 2.4 gm/dL (2.3-3.5); Glucose 89 mg/dL (74-106); Osmolality,Calculated 283 (275-295); Potassium 4.4 mMol/L (3.4-5.1); Sodium 139 mMol/L (136-145); Total Protein 5.8 gm/dL (5.7-8.2); eGFR 44 See Note
[2024-09-10 05:27] LABS: Alkaline Phosphatase 90 U/L (46-116)
[2024-09-10] MEDS: DEXTROSE 50%-WATER INJ 50 ML SYRINGE IV (06:22)
--- NOTE | 2024-09-10 07:09 | PC.NURSE ---
[facility] called stating their Cardio MD is reviewing case and for day team to call back with contact number for
--- NOTE | 2024-09-10 08:02 | PC.CC ---
Addendum entered by Joan Lyn RN 09/10/24 17:39: 1737 called [facility] to inform about ETA. Left VM. 1714 [facility] Called [facility], spoke to Lyndsey and she confirmed that she received the paperwork. Addendum entered by Joan Lyn RN 09/10/24 17:33: 1725 Made [address] [facility] with 2 CD's inside and 1 for [facility]. Completed all signatures. Transfer packets and number to call for report is given to reverse unit operatorclerk Jenkins. Addendum entered by Joan Lyn RN 09/10/24 17:11: 1707 Ashkan from [facility] air called back and ETA is 10 min. Addendum entered by Joan Lyn RN 09/10/24 16:58: 1651 called [facility], spoke to Ashkan for transporting the pt. He stated he will call me back after flight check. 1639 got call from X-ray CD's are made to be picked up. 1530 Unable to setup the transport but due to CD burner down need to wait until I get CD made by X-ray for the pt. Addendum entered by Joan Lyn RN 09/10/24 15:31: 1527 received call from Margret at [facility] that pt is accepted at [facility]. Accepting Dr. is Dr. Carrington, Room 206. Nurse Lou. number for report [phone]. Addendum entered by Joan Lyn RN 09/10/24 15:24: 1517 Ariel informed me that pt is now medical eligible starting from today. I called Melida at [facility] financial dept and informed her. 1455 spoke to Ariel PARIS regarding that. He stated he will find out and call me back. 1451 received call from Melida at [facility] financial dept [phone] ext [phone] inquiring about pt insurance. She wants to know when medi-violette presumptive elig was filled. I let her know that I will find it and call her back. Addendum entered by Joan Lyn RN 09/10/24 13:58: 1353 called [facility], spoke to Margret for transfer update. She confirmed she received TBA, pt has medi-violette presumptive elig so no auth required, pending bed now. Accepted by Dr. Carrington. Margret stated she is looking for bed in all the [facility] hospital, hospital accepting info will be given once bed is available. Addendum entered by Joan Lyn RN 09/10/24 12:42: 1241 TBA faxed to [facility]. Original Note: [id number] received call from ICU noc charge nurse that [facility] stated they are accepting pending insurance authorization, and currently no bed. [facility] is reviewing case and their Cardio MD for day team to call back with contact number for MD for peer to peer. [facility] was called, no answer. [facility] declined due to capacity. 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 Pt needs to be transferred for cardiovascular/thoracic surg for endocarditis.
[2024-09-10] MEDS: HEPARIN SOD INJ 5000 UNIT/ML VIAL SC (08:16)
[2024-09-10] MEDS: cefTRIAXone/D5w 2gm 2 GM/50 ML BAG IV (08:16)
[2024-09-10] MEDS: PANTOPRAZOLE INJ 40 MG VIAL IV (08:16)
[2024-09-10 08:33] LABS: Lactate (Lactic Acid) 2.7 mMol/L (0.4-2.0)
--- NOTE | 2024-09-10 09:06 | EKG_ITS ---
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
[2024-09-10 09:09] LABS: Free T4 (Free Thyroxine) 1.07 ng/dL (0.89-1.76); Magnesium 2.3 mg/dL (1.6-2.6)
[2024-09-10] MEDS: ADENOSINE INJ 3 MG/ML VIAL 6 MG IVP (09:11)
[2024-09-10 09:15] LABS: Troponin I 0.909 ng/mL (0.0-0.045)
--- NOTE | 2024-09-10 09:16 | PD.RESPRO ---
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 pulmonary edema. EKG showed normal sinus rhythm with occasional PACs and left atrial enlargement and LVH with strain pattern. Cardiology was consulted this morning for elevated troponins and also to rule out endocarditis with possible ANGEL as the transthoracic echocardiogram showed moderate to severe AI with questionable mobile echodensity Assessment and plan: 1. Severe acute aortic insufficiency - unclear etiology -mostly vegetation or endocarditis vs degenerative vs fibroelastoma. 2. Acute hypoxic respiratory failure s/p intubation and mechanical ventilation mostly secondary to acute pulmonary edema versus acute CHF exacerbation 3. Acute pulmonary edema 4. Sepsis - Acute influenza A infection-rule out superimposed bacterial pneumonia 5. Elevated troponins-mostly NSTEMI type II in the setting of supply/demand mismatch. 6. Sinus tachycardia and intermittent SVT 7. Hypertensive emergency on admission. 8. Acute kidney injury versus acute on chronic kidney disease stage III 9. Lactic acidosis 10. Hyperglycemia-rule out diabetes check A1c Patient does not seek any medical care and intact past medical history was not clear. As per the history provided by daughter as noted above patient has been having worsening shortness of breath over the last couple of weeks which only worsened in the last 2 days. Echo completed this morning to 2023 showed Moderate to severe eccentric AI, questionable mobile echodensity on the right coronary cusp-differential includes vegetation old versus new versus fibroblastoma. Clinically correlate and consider ANGEL for further evaluation. Calcified right aortic cusp. Moderate aortic valve sclerosis without stenosis V-max 2 m/s. LV size and function appear normal. Estimated EF 55 to 60%. Normal RV size and function. Estimated RVSP 50-60 mmHg. Possible moderate PAH. Moderate TR. Mild biatrial dilatation. Mild to moderate MR. Mild MAC with mild thickening of the mitral leaflets. Patient also had mildly elevated troponins on admission which peaked at 0.9 and now down trended. EF looked normal without any regional wall motion abnormalities and troponin elevation mostly secondary to the supply/demand mismatch in the setting of acute hypoxic respiratory failure, tachycardia as well as sepsis with positive influenza A. Aspirin statin and beta-reddy blood pressure permissible. Patient had elevated heart rate from to 140-150 bpm and EKG on the telemetry reviewed and it appears to be sinus tachycardia as well as intermittent SVT and there was no evidence of any atrial fibrillation or atrial flutter. As needed IV metoprolol for now for rate control. Given the presence of moderate to severe eccentric AI and questionable mobile echodensity noted on the aortic valve. And urgent ANGEL was recommended. Patient was unable to provide consent and daughter was at the bedside I was explained the risk medicine alternatives of performing urgent ANGEL including the risk of perforation, bleeding, injury to the esophagus, stomach, rarely and she provided the consent for the same. Consent placed in the chart. As per daughter he never had previous following problems or any previous esophageal interventions or surgeries. No history of any previous gastric ulcers. She does not know his previous history with anesthesia. Patient denies any kind of swallowing problems or any kind of esophageal interventions or previous surgeries. ANGEL done on 09/09: Severe eccentric aortic regurgitation/insufficiency. Vena contracte 0.9 - 1 cm. Mobile echodensity noted on the right coronary cusp measuring 1 x 0.2 cm on the ventricular aspect. Differential includes possible vegetation versus fibroelastoma versus degenerative disease. Correlate clinically Tricuspid aortic valve. RCC mildly calcified, lack of coaptation noted between the RCC and the other 2 cusps. Moderate AV sclerosis without stenosis. V-max of 2 m/s. Normal LV, RV size and function. Estimated LVEF 55 to 60%. No PFO or ASD. Negative bubble study. No LA/VINH thrombus. Moderate MR and moderate TR. Mild biatrial dilatation. No other valvular vegetations on the mitral, tricuspid and pulmonary valve. Overall picture appears to be more acute than chronic etiology of moderate to severe eccentric aortic insufficiency given the normal LV size and normal LV function. Unclear etiology for the aortic insufficiency and could be mostly vegetation or endocarditis involving right coronary cusp and is on the ventricular aspect. There is lack of coaptation noted between the RCC and the 2 other cast. There is at least mild to moderate calcification of the RCC but not the other cusps and degenerative valve disease can also be considered. Patient will need urgent cardiothoracic surgical evaluation to a tertiary care center for aortic valve replacement versus repair given the acute severe aortic insufficiency with a vena contracte of 1 cm and presentation with acute pulmonary edema. 09/10/2024: Patient seen and examined at the bedside. Patient is still intubated on mechanical ventilation. Overnight patient had few more episodes of sinus tachycardia and SVT and received 2 dose of metoprolol. This morning patient had and her episode of SVT which was terminated with IV adenosine. Patient diuresed well with IV Lasix and is net -1.1 L. BUN is 32 and creatinine is 1.7, it was 23 and 1.4 yesterday Lactate is still elevated at 2.9 Patient blood pressure has been on the softer side and patient now appears to be in sepsis. CT chest and abdomen pelvis was performed which showed showed-extensive bibasilar pneumonia with mild to moderate bilateral pleural effusions and noncalcified pulmonary nodules measuring 4 mm in the right upper lobe and 2 mm in the inguinal segment. With a new CT chest findings appears to be hypoxic respiratory failure could be secondary to bilateral pneumonia as well as the acute influenza A which contributed to CHF exacerbation. Given the above findings we will need to rule out endocarditis given the presence of the echodensity in the aortic valve with moderate to severe acute AI. Patient will need further evaluation at tertiary care center by cardiothoracic surgery and continued aggressive IV antibiotic therapy for the septic shock. Transfer center updated. Additional history Per daughter at bedside patient has been smoking at least her whole life and she is 31 years old daughter states that he smoked approximately 10 to 12 cigarettes/day daily for 33 years patient also states that he drinks about 4-5 beers more than couple times a week. Daughter states he strictly did not use any drugs or history of any drug abuse. Per daughter patient was admitted to [facility] in ICU in 2021 after he was found unresponsive on the floor. The father did not want to inform her of his medical condition because he did not want her to be worried but she does recall being told that he needs to get his heart checked. Patient also has a family history of sudden cardiac of brother. Patient's daughter who gave the history had open heart surgery at the age of 3 months for leaky valve repair or replaced unsure of. Patient has a son who is healthy with no known cardiac history. There is a high probability of sudden, clinically significant or life threatening deterioration in the patient condition which required the highest level of physician preparedness to intervene urgently. I have personally spent 95 minutes of critical care time, exclusive of time spent on any procedures, in evaluation and management of this critically ill patient. Management of rest of the medical conditions as per primary team and other consultants. Thank you for the consult and allowing me to participate in the care of the patient. Cardiology will continue to follow. Bill Fournier M.D. Interventional Cardiology
[2024-09-10] MEDS: Vancomycin Inj 1,500 MG in SODIUM CHLORIDE 0.9% 500 ML 500 ML 200 MG IV (09:49)
[2024-09-10] MEDS: OSELTAMIVIR 6 MG/ML 30 MG PO (09:50)
[2024-09-10 11:29] LABS: Reflex Lactate? Y
--- NOTE | 2024-09-10 11:32 | ESPR_ITS ---
<Statement entered by Shirley Nguyen MD - 09/11/24 13:16> TOTAL CC TIME: 55 MIN I saw and evaluated the patient. I reviewed the resident?s note and agree with findings and plan as documented in the resident?s note. Upon my evaluation, this patient had a high probability of imminent or life- threatening deterioration due to acute hypoxic respiratory failure which required my direct attention, intervention, and personal management. This time is exclusive of time spent on procedures, which are documented separately if performed. CT imaging more consistent with Bacterial pneumonia and influenza A pneumonia only. Cultures remain pending. Repeat blood cultures ordered Initial cultures remain negative Suspect the driving cause of the patient's critical care presentation was pneumonia. Still pending transfer for aortic valve evaluation although not a candidate for replacement until infection is under control. Case was discussed with the ICU physician at [facility] and he also agreed. Ventilator dynamics are appropriate with plateau pressures less than 30 and low tidal volume lung strategy. Wean FiO2. Hold further diuresis for now Documentation for date of: 09/10/24 Subjective Subjective Interval history: Patrice Aguilar is a 64-year-old male with a past medical history of hypertension, anemia, and heart disease who was BIBA for chest pain and shortness of breath. Upon evaluation, patient was already intubated and sedated after failing BiPAP and so history was obtained from chart review and patient's daughter, Gary. For approximately 6 months, daughter had noticed patient becoming more short of breath and an inability to sleep comfortably even with four pillows. Symptoms progressively worsened within the last three days with an associated non- productive cough. Then on morning of presentation he endorsed substernal chest pain and acutely worsening shortness of breath and EMS was called. Per medics, on scene patient was saturating 82% on room air and appeared in respiratory distress. He was then placed on 15 L Oxy Mask with improvement to 92% and given 162 mg Aspirin, 0.4 mg SL Nitro, and 1 Nitro paste on chest prior to arrival. In ED, vitals showed BP 229/117, HR 114, and temperature of 100.9 ?F. Noted to be in respiratory distress with RR in 50s and unable to provide any history so was put on BiPAP and given morphine, solu-medrol, continuous albuterol treatment, 80 mg lasix, and 20 mg ketamine. Due to continued respiratory distress on BiPAP decision was made to intubate and then sedated on propofol and fentanyl. Temperature reached up to 105 ?F so sepsis alert was called and he was given Rocephin 2 g. Also noted to be influenza A positive and CXR showed bilateral basilar infiltrates, left more than right. With sedation, vitals stabilized to BP of 119/52, HR 87, RR 16, temperature 99 ?F, saturating 93% on mechanical ventilation. ABG after intubation showed pH 7.26, pCO2 52, pO2 106. ABG after setting change to A/CMV, VT 420, RR 24, PEEP 6, FiO2 85% showed pH 7.25, pCO2 57, pO2 99. Other initial labs showed WBC wnl, Hgb 13.8, sodium 141, potassium 3.9, creatinine 1.4, BUN wnl, GFR 55, glucose 246, lactate 3.1, BNP 1090, troponin 0.198. EKG obtained in ED without ST elevations or depressions. Admitted to ICU for managemet of acute hypoxic respiratory failure requiring intubation. 09/09: Seen and examined at bedside in ICU. No acute overnight events reported. Noted to be hypotensive with BP 70/40 in evening of 09/08 and so levophed was started. Bedside ultrasound showed complex pleural effusions and thus underwent right-sided thoracentesis with removal of 500 cc of yellow/green-colored fluid. Fluid sent for analysis and culture. Prelim echo showed concern for possible aortic valve vegetation and severe aortic insufficiency and EKG obtained showed T wave inversions in leads V1 through V5, thus cardiology consulted. ANGEL obtained confirmed aortic valve vegetation with suspected acute and severe aortic insufficiency given absence of LV dilatation. Transfer process initiated immediately and family updated on patient clinical status and current plans. To further assess/rule out other sources of infection/sepsis, gallbladder ultrasound showed cholelithiasis without cholecystitis and follow-up on CT head and CTA C/A/P. Of note, baseline heart rate in ICU between 85 to 100 bpm, but noted to increase to 150 to 160 bpm more frequently and for longer period of time. EKG showed sinus tachycardia versus SVT. 09/10: Seen and examined at bedside in ICU. No acute overnight events reported. Given that heart rate remained elevated between 150-160 bpm, adenosine was given to further differentiate between sinus tachycardia and SVT. HR noted to decrease from 152 down to 72 bpm at the lowest and revealed what was most likely sinus tachycardia with occasional PACs. Spoke to multiple facilities for transfer and ultimately patient accepted at [facility] and will be transferred via air-lift. Exam Vital Signs Temp Pulse Resp BP Pulse Ox O2 Del Method FiO2 99.7 F 149 H 28 H 101/52 L 97 Mechanical Ventilation 55 09/10/24 08:00 09/10/24 10:34 09/10/24 10:34 09/10/24 10:34 09/10/24 10:34 09/08/24 17:00 09/10/24 10:34 Narrative Exam General: sedated on propofol and fentanyl, mechanically intubated HEENT: NC/AT, mucous membranes moist, bilateral sclera anicteric Cardiovascular: tachycardic, high-pitched diastolic murmur at left sternal border Pulmonary: fine crackles in right lower lobe; left lung clear to auscultation Abdominal: non-tender, non-distended, no rebound/guarding Musculoskeletal: trace bilateral pitting edema Skin: warm and dry, intact, no rashes Objective Labs 09/10/24 04:34 09/10/24 04:34 Labs: Laboratory Results - last 24 hr 09/09/24 09/09/24 09/09/24 11:39 12:00 13:25 WBC RBC Hgb Hct MCV MCH MCHC RDW Std Deviation Plt Count Neut % (Auto) Lymph % (Auto) [place] % (Auto) Eos % (Auto) Baso % (Auto) Neut # (Auto) Lymph # (Auto) [place] # (Auto) Eos # (Auto) Baso # (Auto) Immature Gran # (Auto) Absolute Nucleated RBC Immature Gran % Nucleated RBC % Puncture Site ABG pH ABG pCO2 ABG pO2 ABG HCO3 ABG O2 Saturation ABG Base Excess FiO2 Sodium 140 Potassium Chloride Carbon Dioxide Anion Gap BUN Creatinine Estim Creat Clear Calc eGFR BUN/Creatinine Ratio Glucose Calculated Osmolality Lactic Acid 1.3 Calcium Corrected Calcium Phosphorus Magnesium Total Bilirubin AST ALT Alkaline Phosphatase Lactate Dehydrogenase Troponin I Total Protein Albumin Globulin Albumin/Globulin Ratio TSH Free T4 Pleural Color Straw Pleural Appearance Clear Pleural WBC 316 Pleural RBC 2000 Pleural Polynuclear WBC 5 Pleural Mononuclear WBC 95 Pleural Total Protein < 2.0 Pleural LDH 101 Pleural Glucose 212 Pleural Amylase 24 09/09/24 09/09/24 09/09/24 13:25 13:25 13:25 WBC RBC Hgb Hct MCV MCH MCHC RDW Std Deviation Plt Count Neut % (Auto) Lymph % (Auto) [place] % (Auto) Eos % (Auto) Baso % (Auto) Neut # (Auto) Lymph # (Auto) [place] # (Auto) Eos # (Auto) Baso # (Auto) Immature Gran # (Auto) Absolute Nucleated RBC Immature Gran % Nucleated RBC % Puncture Site ABG pH ABG pCO2 ABG pO2 ABG HCO3 ABG O2 Saturation ABG Base Excess FiO2 Sodium Cancelled Potassium 4.3 Cancelled Chloride 106 Cancelled Carbon Dioxide 21.1 Anion Gap BUN Creatinine Estim Creat Clear Calc eGFR BUN/Creatinine Ratio Glucose Calculated Osmolality Lactic Acid Calcium Corrected Calcium Phosphorus Magnesium Total Bilirubin AST ALT Alkaline Phosphatase Lactate Dehydrogenase Troponin I Total Protein Albumin Globulin Albumin/Globulin Ratio TSH Free T4 Pleural Color Pleural Appearance Pleural WBC Pleural RBC Pleural Polynuclear WBC Pleural Mononuclear WBC Pleural Total Protein Pleural LDH Pleural Glucose Pleural Amylase 09/09/24 09/09/24 09/09/24 13:25 13:25 13:25 WBC RBC Hgb Hct MCV MCH MCHC RDW Std Deviation Plt Count Neut % (Auto) Lymph % (Auto) [place] % (Auto) Eos % (Auto) Baso % (Auto) Neut # (Auto) Lymph # (Auto) [place] # (Auto) Eos # (Auto) Baso # (Auto) Immature Gran # (Auto) Absolute Nucleated RBC Immature Gran % Nucleated RBC % Puncture Site ABG pH ABG pCO2 ABG pO2 ABG HCO3 ABG O2 Saturation ABG Base Excess FiO2 Sodium Potassium Chloride Carbon Dioxide Cancelled Anion Gap 13 Cancelled BUN 23 Cancelled Creatinine 1.4 H Estim Creat Clear Calc eGFR BUN/Creatinine Ratio Glucose Calculated Osmolality Lactic Acid Calcium Corrected Calcium Phosphorus Magnesium Total Bilirubin AST ALT Alkaline Phosphatase Lactate Dehydrogenase Troponin I Total Protein Albumin Globulin Albumin/Globulin Ratio TSH Free T4 Pleural Color Pleural Appearance Pleural WBC Pleural RBC Pleural Polynuclear WBC Pleural Mononuclear WBC Pleural Total Protein Pleural LDH Pleural Glucose Pleural Amylase 09/09/24 09/09/24 09/09/24 13:25 13:25 13:25 WBC RBC Hgb Hct MCV MCH MCHC RDW Std Deviation Plt Count Neut % (Auto) Lymph % (Auto) [place] % (Auto) Eos % (Auto) Baso % (Auto) Neut # (Auto) Lymph # (Auto) [place] # (Auto) Eos # (Auto) Baso # (Auto) Immature Gran # (Auto) Absolute Nucleated RBC Immature Gran % Nucleated RBC % Puncture Site ABG pH ABG pCO2 ABG pO2 ABG HCO3 ABG O2 Saturation ABG Base Excess FiO2 Sodium Potassium Chloride Carbon Dioxide Anion Gap BUN Creatinine Cancelled Estim Creat Clear Calc 54.5 L Cancelled eGFR 55 L Cancelled BUN/Creatinine Ratio 16 Glucose Calculated Osmolality Lactic Acid Calcium Corrected Calcium Phosphorus Magnesium Total Bilirubin AST ALT Alkaline Phosphatase Lactate Dehydrogenase Troponin I Total Protein Albumin Globulin Albumin/Globulin Ratio TSH Free T4 Pleural Color Pleural Appearance Pleural WBC Pleural RBC Pleural Polynuclear WBC Pleural Mononuclear WBC Pleural Total Protein Pleural LDH Pleural Glucose Pleural Amylase 09/09/24 09/09/24 09/09/24 13:25 13:25 13:25 WBC RBC Hgb Hct MCV MCH MCHC RDW Std Deviation Plt Count Neut % (Auto) Lymph % (Auto) [place] % (Auto) Eos % (Auto) Baso % (Auto) Neut # (Auto) Lymph # (Auto) [place] # (Auto) Eos # (Auto) Baso # (Auto) Immature Gran # (Auto) Absolute Nucleated RBC Immature Gran % Nucleated RBC % Puncture Site ABG pH ABG pCO2 ABG pO2 ABG HCO3 ABG O2 Saturation ABG Base Excess FiO2 Sodium Potassium Chloride Carbon Dioxide Anion Gap BUN Creatinine Estim Creat Clear Calc eGFR BUN/Creatinine Ratio Cancelled Glucose 147 H D Cancelled Calculated Osmolality 286 Cancelled Lactic Acid 3.8 H Calcium 8.4 Corrected Calcium Phosphorus Magnesium Total Bilirubin AST ALT Alkaline Phosphatase Lactate Dehydrogenase Troponin I Total Protein Albumin Globulin Albumin/Globulin Ratio TSH Free T4 Pleural Color Pleural Appearance Pleural WBC Pleural RBC Pleural Polynuclear WBC Pleural Mononuclear WBC Pleural Total Protein Pleural LDH Pleural Glucose Pleural Amylase 09/09/24 09/09/24 09/09/24 13:25 13:25 16:33 WBC RBC Hgb Hct MCV MCH MCHC RDW Std Deviation Plt Count Neut % (Auto) Lymph % (Auto) [place] % (Auto) Eos % (Auto) Baso % (Auto) Neut # (Auto) Lymph # (Auto) [place] # (Auto) Eos # (Auto) Baso # (Auto) Immature Gran # (Auto) Absolute Nucleated RBC Immature Gran % Nucleated RBC % Puncture Site Right Brachial ABG pH 7.31 L ABG pCO2 50 H ABG pO2 70 L ABG HCO3 25 ABG O2 Saturation 95 ABG Base Excess -1 FiO2 40 Sodium Potassium Chloride Carbon Dioxide Anion Gap BUN Creatinine Estim Creat Clear Calc eGFR BUN/Creatinine Ratio Glucose Calculated Osmolality Lactic Acid Calcium Cancelled Corrected Calcium Phosphorus 4.9 Magnesium 2.2 Cancelled Total Bilirubin AST ALT Alkaline Phosphatase Lactate Dehydrogenase Troponin I 0.751 H* Total Protein Albumin Globulin Albumin/Globulin Ratio TSH 0.39 L Free T4 Pleural Color Pleural Appearance Pleural WBC Pleural RBC Pleural Polynuclear WBC Pleural Mononuclear WBC Pleural Total Protein Pleural LDH Pleural Glucose Pleural Amylase 09/09/24 09/09/24 09/09/24 17:23 19:25 22:14 WBC RBC Hgb Hct MCV MCH MCHC RDW Std Deviation Plt Count Neut % (Auto) Lymph % (Auto) [place] % (Auto) Eos % (Auto) Baso % (Auto) Neut # (Auto) Lymph # (Auto) [place] # (Auto) Eos # (Auto) Baso # (Auto) Immature Gran # (Auto) Absolute Nucleated RBC Immature Gran % Nucleated RBC % Puncture Site ABG pH ABG pCO2 ABG pO2 ABG HCO3 ABG O2 Saturation ABG Base Excess FiO2 Sodium Potassium Chloride Carbon Dioxide Anion Gap BUN Creatinine Estim Creat Clear Calc eGFR BUN/Creatinine Ratio Glucose Calculated Osmolality Lactic Acid 5.5 H* Calcium Corrected Calcium Phosphorus Magnesium Total Bilirubin AST ALT Alkaline Phosphatase Lactate Dehydrogenase 312 H Troponin I 0.841 H* Total Protein Albumin Globulin Albumin/Globulin Ratio TSH Free T4 Pleural Color Pleural Appearance Pleural WBC Pleural RBC Pleural Polynuclear WBC Pleural Mononuclear WBC Pleural Total Protein Pleural LDH Pleural Glucose Pleural Amylase 09/10/24 09/10/24 04:34 08:19 WBC 8.6 RBC 4.33 L Hgb 12.0 L Hct 37.9 L MCV 88 MCH 27.7 MCHC 31.7 RDW Std Deviation 45.3 H Plt Count 168 D Neut % (Auto) 87 H Lymph % (Auto) 7 L [place] % (Auto) 6 Eos % (Auto) 0 Baso % (Auto) 0 Neut # (Auto) 7.4 Lymph # (Auto) 0.6 L [place] # (Auto) 0.5 Eos # (Auto) 0.0 Baso # (Auto) 0.0 Immature Gran # (Auto) 0.02 H Absolute Nucleated RBC 0.00 Immature Gran % 0 Nucleated RBC % 0 Puncture Site ABG pH ABG pCO2 ABG pO2 ABG HCO3 ABG O2 Saturation ABG Base Excess FiO2 Sodium 139 Potassium 4.4 Chloride 104 Carbon Dioxide 27.2 Anion Gap 8 BUN 32 H Creatinine 1.7 H Estim Creat Clear Calc 44.9 L eGFR 44 L BUN/Creatinine Ratio 19 Glucose 89 D Calculated Osmolality 283 Lactic Acid 2.7 H Calcium 8.0 L Corrected Calcium 8.5 Phosphorus Magnesium 2.3 Total Bilirubin 0.7 AST 23 ALT 20 Alkaline Phosphatase 90 D Lactate Dehydrogenase Troponin I 0.909 H* Total Protein 5.8 Albumin 3.4 Globulin 2.4 Albumin/Globulin Ratio 1.4 TSH Free T4 1.07 Pleural Color Pleural Appearance Pleural WBC Pleural RBC Pleural Polynuclear WBC Pleural Mononuclear WBC Pleural Total Protein Pleural LDH Pleural Glucose Pleural Amylase ABG Interpretation ABG results: 09/08/24 09/08/24 09/08/24 13:50 15:02 16:37 ABG pH 7.26 L 7.22 L 7.25 L ABG pCO2 52 H 58 H 57 H ABG pO2 144 H 106 D 99 ABG HCO3 23 23 25 ABG O2 Saturation 100 H 98 98 ABG Base Excess -5 L -5 L -3 09/08/24 09/09/24 09/09/24 19:18 05:18 16:33 ABG pH 7.30 L 7.26 L 7.31 L ABG pCO2 47 D 50 H 50 H ABG pO2 84 73 L 70 L ABG HCO3 23 23 25 ABG O2 Saturation 97 95 95 ABG Base Excess -4 L -5 L -1 Quality Measures Quality Measures none Advance care planning discussed with:: child Assessment & Plan Assessment Current Active Medications: Generic Name Dose Route Start Last Admin Trade Name Freq PRN Reason Stop Dose Admin Acetaminophen 650 mg 09/08/24 15:50 09/10/24 02:22 Acetaminophen 325 Mg Tablet PO 10/08/24 15:49 650 mg Q6H PRN Administration fever Albuterol/Ipratropium 3 ml 09/08/24 18:30 09/10/24 10:33 Albuterol/Ipratropium (Duoneb) Rt Violeta 3 Ml Nebu INH 10/08/24 18:29 3 ml Q4H ROMÁN Administration Azithromycin 500 mg 09/10/24 11:30 Azithromycin 250 Mg Tablet PO 09/13/24 11:29 QDAY ROMÁN Dextrose 25 ml 09/08/24 16:29 09/09/24 18:02 Dextrose 50%-Water Inj 50 Ml Syringe IV 10/08/24 16:28 25 ml Q15MIN PRN Administration BG 50-70 responsive npo pt Dextrose 50 ml 09/08/24 16:29 Dextrose 50%-Water Inj 50 Ml Syringe IV 10/08/24 16:28 Q15MIN PRN BG <50 OR BG <70 & pt unresponsive Glucagon 1 mg 09/08/24 16:29 Glucagon Inj 1 Mg Vial IM Q15MIN PRN BG <70, and no IV access Heparin Sodium (Porcine) 5,000 unit 09/08/24 21:00 09/10/24 08:16 Heparin Sod Inj 5000 Unit/Ml Vial SC 09/22/24 20:59 5,000 unit BID ROMÁN Administration Propofol 1,000 mg in 100 mls @ 2.517 mls/hr 09/08/24 15:39 09/10/24 10:00 Diprivan Ivpb IV 10/08/24 14:09 45 mcg/kg/min .Q24H PRN 22.657 mls/hr PER PROTOCOL Titration Protocol 5 MCG/KG/MIN Fentanyl Citrate 2,500 mcg in 250 mls @ 2.5 mls/hr 09/08/24 15:39 09/10/24 10:00 Sublimaze Inj 2,500 Mcg/250 Ml Bag IV 09/13/24 15:05 300 mcg/hr .Q24H PRN 30 mls/hr PER PROTOCOL Titration Protocol 25 MCG/HR Lactated Ringer's 1,000 mls @ 126 mls/hr 09/08/24 15:44 09/09/24 09:22 Lactated Ringers IV 10/08/24 15:43 Not Given .Q7H57M ROMÁN Norepinephrine/Dextrose 8 mg in 250 mls @ 7.867 mls/hr 09/08/24 16:40 09/09/24 18:42 Levophed In D5w 8mg/250ml IV 10/08/24 16:39 0 mcg/kg/min .Q24H PRN 0 mls/hr PER PROTOCOL Titration Protocol 0.05 MCG/KG/MIN Ceftriaxone Sodium/Dextrose 2 gm in 50 mls @ 100 mls/hr 09/09/24 09:15 09/10/24 08:16 Rocephin/D5w 2gm IV 09/16/24 09:14 100 mls/hr QDAY ROMÁN Administration Vancomycin HCl 1,500 mg/ 500 mls @ 200 mls/hr 09/10/24 10:00 09/10/24 09:49 Sodium Chloride IV 09/17/24 09:59 10 mg/min QDAY@1000 ROMÁN 200 mls/hr Administration Protocol 10 MG/MIN Insulin Glargine 5 unit 09/09/24 09:15 09/10/24 08:12 Insulin Glargine (Lantus) 5 Unit/0.05 Ml (Per 5 Units) SC 10/09/24 09:14 Not Given QDAY ROMÁN Insulin Human Lispro 0 unit 09/09/24 12:00 09/10/24 06:23 Insulin Lispro (Admelog) 1 Unit/0.01 Ml Unit SC 10/08/24 11:59 Not Given Q6HR ROMÁN Protocol Oseltamivir Phosphate 30 mg 09/08/24 23:59 09/10/24 09:50 Oseltamivir 6 Mg/Ml PO 09/15/24 23:58 30 mg BID ROMÁN Administration Pantoprazole Sodium 40 mg 09/08/24 16:15 09/10/24 08:16 Pantoprazole Inj 40 Mg Vial IV 10/08/24 16:14 40 mg QDAY ROMÁN Administration Pharmacy Consult 1 each 09/08/24 15:45 Pharmacy Renal Dose Adjustment 1 Ea XX 10/08/24 15:44 QDAY PRN PROTOCOL Pharmacy Consult 1 each 09/09/24 09:30 Vancomycin Pharmacy To Dose 1 Each Each IV 10/09/24 09:29 QDAY PRN PROTOCOL Plan Patrice Aguilar is a 64-year-old male with a past medical history of hypertension, anemia, and heart disease who was BIBA for chest pain and shortness of breath beginning and intubated in the ED on 09/08 for acute hypoxic respiratory failure and admitted to the ICU for further management. 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 Currently in midst of transfer process to [facility], [facility], [place]. ? Accepted at [facility] and air-lifted on 09/10 ? Vancomycin 1.5 g daily, renally dosed #Acute decompensated CHF exacerbation Per daughter, noted to have 6 months of shortness of breath and orthopnea. No lower extremity edema or crackles heard on exam. Bedside echo in ED showed collapsible IVC. CXR showed mildly enlarged cardiac contour with pulmonary vascular congestion and BNP 1090. Given 80 mg IV Lasix in ED. ANGEL: Normal LV thickness and systolic function without WMA and EF 55 to 60%. RV normal in size and function with RVSP 50 mmHg. Mild to moderate MR. Vegetation on right coronary cusp of aortic valve with moderate AI. Mild to moderate TR, mild RI. ? Given Lasix 40 mg IV x 2 ? Strict I's and O's ? Closely monitor fluid status #Sinus tachycardia versus SVT Baseline heart rate in ICU 85 to 100 bpm but noted to increase 250 to 160 bpm more frequently and for longer periods of time. Multiple EKG showed regular, narrow complexes with associated P waves and previously noted ST depressions in V1 through V5. QRS complexes also identical when transitioning from normal heart rate to tachycardia. Thus, differential more likely to be sinus tachycardia rather than SVT. Given adenosine on 09/10 that showed what was most likely sinus tachycardia with occasional PACs. #Hypotension, shock (distributive vs cardiogenic) vs sedation Started on Levophed and evening of 09/08 but drip no longer on since early afternoon of 09/09. Bedside ultrasound showed complex pleural fluid in setting of influenza A pneumonia and thoracentesis yielded 500 cc of yellow-green fluid, thus possible distributive shock. ? Levophed PRN #Elevated troponins #Demand ischemia Likely in setting of acute decompensated CHF exacerbation, hypertensive urgency/emergency, and AHRF. #Hypertensive urgency/emergency with renal dysfunction, resolved #History of hypertension Blood pressure improved likely secondary to propofol drip ? Continue to monitor Pulmonary #Acute hypoxic respiratory failure requiring intubation secondary to flu pneumonia versus acute decompensated CHF exacerbation Low tidal volume protocol/lung protective strategy. ABG on 09/09 at 0500: pH 7.26, pCO2 50, pO2 73. ? Vent settings: A/CMV, VT 380, RR 27, PEEP 5, FiO2 40% ? DuoNebs every 3 hours scheduled #Influenza pneumonia #? Concomitant bacterial pneumonia CXR 09/08: Bilateral infiltrates, L > R Given respiratory failure and hemodynamic instability, will cover for concomitant infection with Rocephin. ? Tamiflu renally dosed at 75 mg p.o. twice daily (09/08-) ? Rocephin 2 g daily (09/08-) ? Follow-up sputum culture (09/08) ? Follow-up blood culture (09/08) Gastrointestinal No active/acute disease Renal #ELIZABETH versus CKD No baseline creatinine, thus cannot determine whether patient is in ELIZABETH or CKD. ? Consider obtaining urine albumin, creatinine, total protein #Lactic acidosis, in setting of sepsis Initial lactic acid 3.1 downtrending to 2.4 after IVF ? Trend lactic acid Heme/onc No active/acute disease Endocine #Hyperglycemia, in setting of steroids In ED received 250 mg of IV Solu-Medrol. ? SSI every 6 hours, increased scale Infectious disease #Sepsis, secondary to ? infective endocarditis vs influenza pneumonia SIRS 3/4: HR 144, RR 50, T 105 ?F + aortic valve vegetation and influenza A positive -> sepsis ? See cardiovascular and pulmonary above Hospital management: Disposition: intubated and mechanically ventilated in ICU Sedation: Propofol and fentanyl Pressors: levophed PRN Fluids: none Diet: N.p.o. Lines: Peripheral IV DVT prophylaxis: Heparin SC twice daily GI prophylaxis: Pantoprazole IV daily Borges: Placed 09/08 CODE STATUS: full code ----- Plan discussed with attending physician Dr. Patrick Wilkerson MD PGY-1 Internal Medicine
[2024-09-10] MEDS: AZITHROMYCIN 250 MG TABLET 500 MG PO (12:03)
[2024-09-10 12:06] LABS: Lactic Acid, 3 HR 2.9 mMol/L (0.4-2.0)
[2024-09-10] MEDS: PROPOFOL 1,000 MG IVPB 1,000 MG/100 ML VIAL 15.105 MG IV ×2 (12:30→17:35)
--- NOTE | 2024-09-10 14:25 | PC.SS ---
[employer] conducted bedside contact with the patient.? Present at bedside was patient?s daughter, Gary Aguilar .? Information obtained from daughter.? Patient admitted to ICU, currently intubated.? Patient pending transfer for cardiovascular/thoracic surgery for endocarditis.? Patient resides at home with daughter.? Patient did not require use of DME to assist with ambulation.? Patient did not require use of home oxygen.? Patient was independent with ADL?s.? Patient?s medical surrogate decision maker is daughter, Gary Aguilar.? Patient?s PCP is Dr. Baker [facility].? Patient utilizes [facility] for medication services.? tax services intern will discuss discharge needs at an appropriate future time.? No further intervention required at this time, social work specialist will be available to address any further concerns.? Next of Kin: Gary Aguilar D/C Plan: Pending Transfer
[2024-09-10 16:14] LABS: Troponin I 0.593 ng/mL (0.0-0.045)
--- NOTE | 2024-09-10 17:41 | PC.NURSE ---
[facility] at bedside to transfer the patient to [facility] for emergent transfer. Medications running and going with patient for stat transfer. Fentanly running at 300 mcg/kg/hr and Propofol running at 30 mcg/hr. Verified with Charge Nurse Sugey and MERCED Barrientos
--- NOTE | 2024-09-10 17:52 | PC.NURSE ---
Report called to Vannesa BLACKWOOD from [facility],
--- NOTE | 2024-09-10 17:54 | PC.NURSE ---
Report called to Michi Galvan and spoke to MERCED Granado, patient was transported @ 1750 by [facility]. Daughter was at bedside and updated with all information for the transfer by MD Wilkerson and the flight team.
--- NOTE | 2024-09-10 17:56 | PC.NURSE ---
Verified with ROSA ELENA BLACKWOOD, Fentanyl @300mcg/kg/hr and Propofol @30mcg/kg. Medications going with pt. Pt being transferred via [facility] to [facility].
== END 2024-09-10 17:50 | disposition other institution (70) | DRG 720 ==
LOC: SERX 16:21 → SERHOLD 16:24 → S2SX 17:44
PROVIDERS: Student in an Organized Health Care Education/Training Program; Admitting Provider Internal Medicine; Emergency Provider Emergency Medicine; PCP Family Medicine; Visit Provider Internal Medicine
DX: A41.02 Sepsis due to Methicillin resistant Staphylococcus aureus (principal); J96.01 Acute respiratory failure with hypoxia; J10.08 Influenza due to other identified influenza virus with other specified pneumonia; J15.212 Pneumonia due to Methicillin resistant Staphylococcus aureus; R65.21 Severe sepsis with septic shock; F17.210 Nicotine dependence, cigarettes, uncomplicated; N17.9 Acute kidney failure, unspecified; I50.9 Heart failure, unspecified; I16.1 Hypertensive emergency; I13.0 Hypertensive heart and chronic kidney disease with heart failure and stage 1 through stage 4 chronic kidney disease, or unspecified chronic kidney disease; J91.8 Pleural effusion in other conditions classified elsewhere; I35.1 Nonrheumatic aortic (valve) insufficiency; E86.0 Dehydration; I24.89 Other forms of acute ischemic heart disease; N18.30 Chronic kidney disease, stage 3 unspecified; D63.1 Anemia in chronic kidney disease; E87.20 Acidosis, unspecified; R73.9 Hyperglycemia, unspecified; I47.10 Supraventricular tachycardia, unspecified; Z95.2 Presence of prosthetic heart valve
CPT/HCPCS: 36415; 36600; 70450; 71045; 71275; 74174; 76705; 80048; 80053; 80307; 81001; 82150; 82803; 82945; 83036; 83605; 83615; 83690; 83735; 83880; 84100; 84145; 84157; 84439; 84443; 84478; 84484; 85025; 87040; 87070; 87075; 87081; 87205; 87400; 87811; 89051; 93005; 93306; 93312; 94002; 94003; 94640; 94660; A4649; A9270; J0131; J0153; J0696; J1643; J1815; J1940; J2250; J2270; J2470; J2704; J2919; J3010; J3370; J3490; J7040; J7120; Q9967